=== PATIENT | male | born 1990 | race Caucasian/White ===

== ENCOUNTER 2021-07-20 10:30 | Emergency (ER) | payer SELFPAY ==
[2021-07-20] MEDS ORDERED: BUPIVACAINE 0.5% PF 10 ML VIAL ONE (10:53)
--- NOTE | 2021-07-20 11:11 | EDPHYS ---
Physician Documentation [facility] Name: Job Campbell Jr Age: 30 yrs Sex: Male : 1990 Arrival Date: 07/20/2021 Time: 10:32 Bed 12 Private MD: ED Physician Edmund Benavides HPI: 07/20 10:54 This 30 yrs old Male presents to ER via Ambulatory with complaints of Infected Finger. jr8 10:54 The patient or guardian reports pain, swelling, tenderness. The complaints affect the jr8 cuticle left middle finger. Onset: The symptoms/episode began/occurred gradually. Modifying factors: The symptoms are alleviated by nothing, the symptoms are aggravated by movement. Associated signs and symptoms: The patient has no apparent associated signs or symptoms. Severity of symptoms: At their worst the symptoms were moderate, in the emergency department the symptoms are unchanged. The patient has not experienced similar symptoms in the past. The patient has not recently seen a physician. Stated that he hit his finger with drill bit the other day at work. Now with exudate, swelling, and erythema to left middle finger medial cuticle . Historical: - Allergies: 10:38 No Known Allergies; iw - Home Meds: 10:38 None [Active]; iw - PMHx: 10:38 None; iw - PSHx: 10:38 None; iw - Immunization history:: Last tetanus immunization: unknown. - Social history:: Smoking status: . ROS: 10:54 Eyes: Negative for injury, pain, redness, and discharge, ENT: Negative for injury, jr8 pain, and discharge, Neck: Negative for injury, pain, and swelling, Cardiovascular: Negative for chest pain, palpitations, and edema, Respiratory: Negative for shortness of breath, cough, wheezing, and pleuritic chest pain, Abdomen/GI: Negative for abdominal pain, nausea, vomiting, diarrhea, and constipation, Back: Negative for injury and pain, Skin: Negative for injury, rash, and discoloration, Neuro: Negative for headache, weakness, numbness, tingling, and seizure. 10:54 MS/extremity: Positive for erythema, pain, swelling, tenderness, of the left middle fingernail. Exam: 10:54 Constitutional: This is a well developed, well nourished patient who is awake, alert, jr8 and in no acute distress. Cardiovascular: Regular rate and rhythm with a normal S1 and S2. No gallops, murmurs, or rubs. Normal PMI, no JVD. No pulse deficits. Respiratory: Lungs have equal breath sounds bilaterally, clear to auscultation and percussion. No rales, rhonchi or wheezes noted. No increased work of breathing, no retractions or nasal flaring. Skin: Warm, dry with normal turgor. Normal color with no rashes, no lesions Neuro: Awake and alert, GCS 15, oriented to person, place, time, and situation. Motor strength 5/5 in all extremities. Sensory grossly intact. 10:54 Musculoskeletal/extremity: Extremities: grossly normal except: noted in the left middle fingernail: Patient has mild erythema to lateral cuticle with exudate noted. Swelling and tenderness present. Local to cuticle region. Remainder of finger and hand unremarkable , ROM: intact in all extremities, Circulation is intact in all extremities. Sensation intact. Vital Signs: 10:37 BP 135 / 98; Pulse 82; Resp 16; Temp 98.6; Pulse Ox 100% on R/A; iw Procedures: 10:54 I \T\ D: Incision and drainage was performed for an abscess of the left middle finger jr8 Prepped with Betadine, Incised with scissors under cuticle . Drained small amount purulent fluid. bloody fluid. the patient tolerated the procedure well. Nerve block: (digital) of dorsal aspect of proximal phalanx of left middle finger Medication: Marcaine 0.5%, Amount: 4 mls were injected, Effect: the patient has resolution of the pain, Set up for procedure. Performed by Carlos KELLER Patient tolerated well. MDM: 10:44 Patient medically screened. jr8 11:09 Data reviewed: vital signs, nurses notes, and as a result, I will discharge patient. jr8 Data interpreted: Pulse oximetry: on room air is 100 %. Interpretation: normal. Counseling: I had a detailed discussion with the patient and/or guardian regarding: the historical points, exam findings, and any diagnostic results supporting the discharge/admit diagnosis, the need for outpatient follow up, a family practitioner, to return to the emergency department if symptoms worsen or persist or if there are any questions or concerns that arise at home. 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 Exp: iw 05/11/2023. Lot #: [id number]. } Route: IM; Site: left deltoid; 11:20 Follow up: Response: No adverse reaction iw Disposition Summary: 07/20/21 11:10 Discharge Ordered [facility] Problem: new jr8 Symptoms: have improved jr8 Condition: Stable jr8 Diagnosis - Paronychia jr8 Followup: jr8 - With: Private Physician - When: 5 - 6 days - Reason: Recheck today's complaints, Re-evaluation by your physician Discharge Instructions: - Discharge Summary Sheet jr8 - Paronychia jr8 Forms: - Medication Reconciliation Form jr8 - Thank You Letter jr8 - Antibiotic Education jr8 - Prescription Opioid Use jr8 Prescriptions: - Cephalexin 500 mg Oral Capsule - take 1 capsule by ORAL route every 8 hours for 7 days; 21 capsule; Refills: 0, jr8 Product Selection Permitted - Tylenol-Codeine #3 300 mg-30 mg Oral - take 2 tablet by ORAL route every 8 hours As needed; 12 tablet; Refills: 0, jr8 Product Selection Permitted Signatures: Dayami Tellez RN RN Ximena Thornton RN RN Carlos Ocampo PA PA jr8
--- NOTE | 2021-07-20 11:11 | ER ---
Nurse's Notes [facility] Name: Job Campbell Jr Age: 30 yrs Sex: Male : 1990 Arrival Date: 07/20/2021 Time: 10:32 Bed 12 Private MD: Diagnosis: Paronychia Presentation: 07/20 10:37 Chief complaint: Patient states: left middle finger has had infection X 3 weeks after iw drilling into it with a drill bit. Coronavirus screen: At this time, the client does not indicate any symptoms associated with coronavirus-19. Ebola Screen: Patient negative for fever greater than or equal to 101.5 degrees Fahrenheit, and additional compatible Ebola Virus Disease symptoms Patient denies exposure to infectious person. Patient denies travel to an Ebola-affected area in the 21 days before illness onset. No symptoms or risks identified at this time. Initial Sepsis Screen: Does the patient meet any 2 criteria? No. Patient's initial sepsis screen is negative. Does the patient have a suspected source of infection? No. Patient's initial sepsis screen is negative. Risk Assessment: Do you want to hurt yourself or someone else? Patient reports no desire to harm self or others. Onset of symptoms was June 30, 2021. 10:37 Method Of Arrival: Ambulatory iw 10:37 Acuity: SUSANNA 4 iw Historical: - Allergies: 10:38 No Known Allergies; iw - Home Meds: 10:38 None [Active]; iw - PMHx: 10:38 None; iw - PSHx: 10:38 None; iw - Immunization history:: Last tetanus immunization: unknown. - Social history:: Smoking status: . Screenin:40 Abuse screen: Denies threats or abuse. Denies injuries from another. Nutritional iw screening: No deficits noted. Tuberculosis screening: No symptoms or risk factors identified. Fall Risk None identified. Assessment: 10:39 General: Appears in no apparent distress. Behavior is calm, cooperative. Pain: iw Complains of pain in dorsal aspect of distal phalanx of left middle finger and palmar aspect of distal phalanx of left middle finger. Neuro: Level of Consciousness is awake, alert, obeys commands, Oriented to person, place, time, situation, Moves all extremities. Respiratory: Respiratory effort is even, unlabored, Respiratory pattern is regular. Derm: Abscess located on palmar aspect of distal phalanx of left middle finger and left middle fingernail. 11:20 Reassessment: Patient appears in no apparent distress at this time. Patient is alert, ss oriented x 3, equal unlabored respirations, skin warm/dry/pink. Vital Signs: 10:37 BP 135 / 98; Pulse 82; Resp 16; Temp 98.6; Pulse Ox 100% on R/A; iw ED Course: 10:32 Patient arrived in ED. mr 10:38 Triage completed. iw 10:39 Arm band placed on. iw 10:44 Carlos Ocampo PA is PHCP. jr8 10:44 Edmund Benavides MD is Attending Physician. jr8 10:47 Dayami Tellez, RN is Primary Nurse. iw 11:16 Assist provider with I \T\ D: of an abscess on left middle finger. Patient did not have iw IV access during this emergency room visit. 11:20 Patient has correct armband on for positive identification. 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 Exp: iw 05/11/2023. Lot #: [id number]. } Route: IM; Site: left deltoid; 11:20 Follow up: Response: No adverse reaction iw Medication: 11:18 Vaccine Information Statement (VIS) provided today. Questions and/or concerns iw addressed. VIS edition date: July 20, 2021. Outcome: 11:10 Discharge ordered by . jr8 11:20 Discharged to home ambulatory. ss 11:20 Condition: good 11:20 Discharge instructions given to patient, family, Instructed on discharge instructions, follow up and referral plans. medication usage, Demonstrated understanding of instructions, follow-up care, medications, Prescriptions given X 2. 11:21 Patient left the ED. ss Signatures: Louise Peter Dayami Tellez, VEDA MCCOLLUM Ximena Thornton RN RN Carlos Ocampo PA PA jr8
[2021-07-20] MEDS ORDERED: TETANUS & DIPHTHERIA TOX,ADULT 0.5 ML VIAL ONE (11:17)
[2021-07-20 11:30] VITALS: BP 135/98; TEMP 98.6; O2SAT 100
== END 2021-07-20 11:21 | disposition home or self-care (01) ==
LOC: ER 10:30
PROC: 0H9QXZZ Drainage of Finger Nail, External Approach (ICD-10-PCS; principal; 2021-07-20)
DX: L03.012 Cellulitis of left finger (principal)
CPT/HCPCS: 64450; 90471; 90714; 99283

== ENCOUNTER 2021-09-07 07:56 | Emergency (ER) | payer SELFPAY ==
--- NOTE | 2021-09-07 08:14 | EDPHYS ---
Physician Documentation [facility] Name: Job Campbell Jr Age: 30 yrs Sex: Male : 1990 Arrival Date: 09/07/2021 Time: 07:58 Bed 14 Private MD: Clint Nolan ED Physician Lokesh Levine HPI: 09/07 08:16 This 30 yrs old Male presents to ER via Ambulatory with complaints of Burn left foot. pm1 08:16 The patient presents with a burn as a result of Welding spark, at work, is located on pm1 the dorsum of left foot. Onset: The symptoms/episode began/occurred 3 day(s) ago. Burn type and severity: 2nd degree:. Associated signs and symptoms: none. The patient has experienced a previous episode, many years ago, To right foot from welding spark also. The patient has not recently seen a physician. 30-year-old male presents to the ER with complaints of left foot injury, second-degree burn approximately size of a nickel. 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 Patient concerned about infection and is looking for antibiotics and pain medication. Patient took tramadol from a friend of his mother last night and reported some relief. Tetanus up-to-date received it this year. Historical: - Allergies: 08:00 No Known Allergies; vg1 - Home Meds: 08:00 None [Active]; vg1 - PMHx: 08:00 None; vg1 - PSHx: 08:00 None; vg1 - Immunization history:: Client reports having NOT received the Covid vaccine. - Social history:: Smoking status: Patient reports the use of cigarette tobacco products, denies chronic smoking, but will smoke occasionally, Reported history of juuling and/or vaping. ROS: 08:16 Constitutional: Negative for fever, chills, and weight loss, Cardiovascular: Negative pm1 for chest pain, palpitations, and edema, Respiratory: Negative for shortness of breath, cough, wheezing, and pleuritic chest pain. 08:16 MS/extremity: Positive for pain, of the dorsum of left foot, Negative for decreased range of motion, deformity. 08:16 Skin: Positive for burn, of the dorsum of left foot. 08:16 All other systems are negative. Exam: 08:16 Constitutional: This is a well developed, well nourished patient who is awake, alert, pm1 and in no acute distress. Head/Face: Normocephalic, atraumatic. 08:16 Cardiovascular: Exam negative for acute changes, Rate: Rhythm: regular, Pulses: no pulse deficits are appreciated. 08:16 Respiratory: Exam negative for acute changes, respiratory distress, shortness of breath. 08:16 Skin: Appearance: normal except for affected area, injury, burn(s), 2nd degree burn injury covers approximately 0.1% of the total body surface area, and is located on the dorsum of left foot. 08:16 Neuro: Exam negative for acute changes, Orientation: is normal, Mentation: is normal, Motor: moves all fours. Vital Signs: 08:00 BP 123 / 82; Pulse 90; Resp 16; Temp 98.2(TE); Pulse Ox 100% on R/A; Weight 65.77 kg; vg1 Height 5 ft. 11 in. (180.34 cm); Pain 7/10; 08:00 Body Mass Index 20.22 (65.77 kg, 180.34 cm) vg1 MDM: 08:02 Patient medically screened. pm1 08:12 ED course: Patient tetanus is up to date. Reports received it 2 months ago . pm1 08:29 Data reviewed: vital signs. Data interpreted: Pulse oximetry: on room air is 100 %. pm1 Interpretation: normal. Counseling: I had a detailed discussion with the patient and/or guardian regarding: the historical points, exam findings, and any diagnostic results supporting the discharge/admit diagnosis, the need for outpatient follow up, to return to the emergency department if symptoms worsen or persist or if there are any questions or concerns that arise at home. 08:29 Differential diagnosis: 2nd degree morrow, cellulitis, abscess. pm1 07 08:12 Order name: Wound dressing; Complete Time: 08:55 pm1 Administered Medications: 08:29 Drug: HYDROcodone-acetaminophen 5 mg-325 mg 1 tabs Route: PO; vg1 08:55 Follow up: Response: Adverse reaction, Physician notified 1 Disposition: 13:56 Co-signature as Attending Physician, Lokesh Levine MD. rn Disposition Summary: 09/07/21 08:14 Discharge Ordered Location: Home pm1 Problem: new pm1 Symptoms: have improved pm1 Condition: Stable pm1 Diagnosis - Burn of second degree of left foot pm1 Followup: pm1 - With: Private Physician - When: As needed - Reason: Worsening of condition Followup: pm1 - With: Clint Nolan MD - When: 2 - 3 days - Reason: Recheck today's complaints, Continuance of care, Re-evaluation by your physician Discharge Instructions: - Discharge Summary Sheet pm1 - Burn Care, Adult pm1 Forms: - Medication Reconciliation Form pm1 - Thank You Letter pm1 - Antibiotic Education pm1 - Prescription Opioid Use pm1 Prescriptions: - Cephalexin 500 mg Oral Capsule - take 1 capsule by ORAL route every 6 hours for 10 days; 40 capsule; Refills: 0, pm1 Product Selection Permitted - Bactrim DS 800-160 mg Oral Tablet - take 1 tablet by ORAL route every 12 hours for 10 days; 20 tablet; Refills: 0, pm1 Product Selection Permitted - Tramadol 50 mg Oral Tablet - take 1 tablet by ORAL route every 8 hours as needed; 12 tablet; Refills: 0, pm1 Product Selection Permitted - bacitracin - apply 1 application by TOPICAL route every 8 hours; 1 tube; Refills: 0, Product pm1 Selection Permitted Signatures: Lokesh Levine MD MD rn Marinas, Patrick, NP DIETETICS DIRECTOR pm1 Radha Benites RN RN vg1
[2021-09-07] MEDS ORDERED: HYDROCODONE/APAP 5/325 MG TAB ONE (08:33)
--- NOTE | 2021-09-07 08:57 | ER ---
Nurse's Notes 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 Pt states left foot has swelling. stated took Tramadol yesterday around 1830. 08:00 Coronavirus screen: Vaccine status: Patient reports being unvaccinated. Client denies vg1 travel out of the [place] in the last 14 days. Ebola Screen: Patient denies exposure to infectious person. Patient denies travel to an Ebola-affected area in the 21 days before illness onset. Initial Sepsis Screen: Does the patient meet any 2 criteria? No. Patient's initial sepsis screen is negative. Does the patient have a suspected source of infection? No. Patient's initial sepsis screen is negative. Risk Assessment: Do you want to hurt yourself or someone else? Patient reports no desire to harm self or others. Onset of symptoms was August 06, 2021. 08:00 Method Of Arrival: Ambulatory vg1 08:00 Acuity: SUSANNA 4 vg1 Triage Assessment: 08:00 General: Appears uncomfortable, Behavior is calm, cooperative. Pain: Complains of pain vg1 in dorsum of left foot Pain currently is 7 out of 10 on a pain scale. Pain began 2-3 days ago. EENT: No signs and/or symptoms were reported regarding the EENT system. Neuro: Level of Consciousness is awake, alert, obeys commands, Oriented to person, place, time, situation. Cardiovascular: Patient's skin is warm and dry. Respiratory: Airway is patent Respiratory effort is even, unlabored. GI: No signs and/or symptoms were reported involving the gastrointestinal system. : No signs and/or symptoms were reported regarding the genitourinary system. Derm: Skin has blisters on on top of left foot Skin is red. Musculoskeletal: Circulation, motion, and sensation intact. Injury Description: Burn was sustained 2 days ago. Historical: - Allergies: 08:00 No Known Allergies; vg1 - Home Meds: 08:00 None [Active]; vg1 - PMHx: 08:00 None; vg1 - PSHx: 08:00 None; vg1 - Immunization history:: Client reports having NOT received the Covid vaccine. - Social history:: Smoking status: Patient reports the use of cigarette tobacco products, denies chronic smoking, but will smoke occasionally, Reported history of juuling and/or vaping. Screenin:20 Abuse screen: Denies threats or abuse. Nutritional screening: No deficits noted. vg1 Tuberculosis screening: No symptoms or risk factors identified. Fall Risk None identified. Assessment: 08:00 Reassessment: SEE TRIAGE. vg1 08:56 Reassessment: Patient appears in no apparent distress at this time. No changes from vg1 previously documented assessment. Patient and/or family updated on plan of care and expected duration. Pain level reassessed. Patient is alert, oriented x 3, equal unlabored respirations, skin warm/dry/pink. Vital Signs: 08:00 BP 123 / 82; Pulse 90; Resp 16; Temp 98.2(TE); Pulse Ox 100% on R/A; Weight 65.77 kg; vg1 Height 5 ft. 11 in. (180.34 cm); Pain 7/10; 08:00 Body Mass Index 20.22 (65.77 kg, 180.34 cm) vg1 ED Course: 07:58 Patient arrived in ED. as 07:58 Clint Nolan MD is Private Physician. as 08:00 Arm band placed on. vg1 08:01 Telly Leigh [facility]. pm1 08:01 Lokesh Levine MD is Attending Physician. pm1 08:14 Clint Nolan MD is Referral Physician. pm1 08:16 Radha Benites, VEDA is Primary Nurse. vg1 08:18 Triage completed. vg1 08:20 Patient has correct armband on for positive identification. Placed in gown. Call light vg1 in reach. Side rails up X 1. 08:20 No provider procedures requiring assistance completed. Patient did not have IV access vg1 during this emergency room visit. Administered Medications: 08:29 Drug: HYDROcodone-acetaminophen 5 mg-325 mg 1 tabs Route: PO; vg1 08:55 Follow up: Response: Adverse reaction, Physician notified vg1 Medication: 08:57 VIS not applicable for this client. vg1 Outcome: 08:14 Discharge ordered by . pm1 08:57 Discharged to home ambulatory. vg1 08:57 Condition: good 08:57 Discharge instructions given to patient, Instructed on discharge instructions, follow up and referral plans. medication usage, wound care, Demonstrated understanding of instructions, follow-up care, medications, wound care, Prescriptions given X 4. 08:57 Patient left the ED. vg1 Signatures: Katia Clark Patrick, NP MILLED RUBBER TENDER pm1 Radha Benites, RN RN vg1 Corrections: (The following items were deleted from the chart) 08:19 08:00 Chief complaint: Patient states: was welding on and stated a spark was vg1 caught in between shoe and sock. Pt states left foot has swelling vg1
[2021-09-07 09:05] VITALS: BP 123/82; TEMP 98.2; O2SAT 100
== END 2021-09-07 08:57 | disposition home or self-care (01) ==
LOC: ER 07:56
DX: T25.222A Burn of second degree of left foot, initial encounter (principal); T31.0 Burns involving less than 10% of body surface; F17.210 Nicotine dependence, cigarettes, uncomplicated
CPT/HCPCS: 99283

== ENCOUNTER 2022-05-18 11:39 | Emergency (ER) | payer SELFPAY ==
--- OUTSIDE RECORDS SUMMARY | 2022-05-18 11:42 | XMS REPORT | Continuity of Care Document ---
:1990 Author Organization [facility] t Address [address] [place] [address] Care Team Providers Name Role Phone DADA LISSETTE Primary Care Physician Unavailable [facility] Attending Clinician Unavailable Unknown, Attending Attending Clinician Unavailable Rae Crystal MD Attending Clinician PALOMO WOODY Attending Clinician Unavailable Doctor Unassigned, [place] Attending Clinician Unavailable Lab, Adc Fam Pob I Attending Clinician Unavailable Margaret Reyes Attending Clinician MARGARET UMANZOR Attending Clinician Unavailable Problems This patient has no known problems. Allergies, Adverse Reactions, Alerts Allergy Allergy Status Severity Reaction(s) Onset Inactive Treating Comm ents Source Name Type Date Date Clinician NO KNOWN Drug Active Univers ALLERGIE Class ity of S [facility] Social History Social Habit Start Date Stop Date Quantity Comments Source Exposure to 2022-05-08 2022-05-18 Not sure [facility] SARS-CoV-2 00:00:00 10:21:00 [facility] (event) Branch Tobacco use and 2022-05-18 2022-05-18 Smokeless tobacco Un iversity of exposure 00:00:00 00:00:00 non-user [facility] Sex Assigned At [birth year] Universit y of 00:00:00 00:00:00 [facility] Smoking Status Start Date Stop Date Source Tobacco [facility] tobacco [facility] Medications This patient has no known medications. Vital Signs Vital Name Observation Time Observation Value Comments Source Systolic blood 2022-05-18 15:46:00 118 mm[Hg] Univer sity of pressure [facility] Diastolic blood 2022-05-18 15:46:00 73 mm[Hg] Unive rsity of pressure [facility] Heart rate 2022-05-18 15:46:00 93 /min [facility] acute hospital Body temperature 2022-05-18 15:46:00 36.89 [place] [facility] Res[facility] rate 2022-05-18 15:46:00 16 /min [facility] Body weight 2022-05-18 15:46:00 59.421 kg General acute hospital BMI 2022-05-18 15:46:00 18.27 kg/m2 General acute hospital Oxygen saturation in 2022-05-18 15:46:00 99 /min [facility] Arterial blood by [facility] Pulse oximetry [place] Procedures Procedure Date / Time Performed Performing Clinician Sour e ASSIGNMENT OF BENEFITS 2022-05-18 15:24:23 Doctor Unassigned, No [facility] Encounters Start End Encounter Admission Attending Care Care Encounter Source Date/Time Date/Time Type Type Clinicians Facility Department ID 2022-05-18 2022-05-18 Nurse Nurse, [facility] [id number] [facility] 10:40:00 11:00:00 Visit Unknown, Attending HEALTH [id number] ity of Rae Crystal [id number] [facility]?BLEA [phone] Ga rommel [address] MEDICAL OFFICE BUILDING 2022-05-18 2022-05-18 Outpatient R BONG, [facility] [id number] Univers 10:40:00 10:40:00 PALOMO ity o f [facility] 2022-05-18 2022-05-18 Orders Doctor BUTLER [id number] Univers 00:00:00 00:00:00 Only Unassigned, ARNIE [id number] [facility] [id number] Lucio as [phone] [place] [address] Branch 2020-01-28 2020-01-28 Laboratory Lab, Adc Fam Pob I [facility] [id number] Univers 15:45:02 16:05:02 [id number] [id number] Lucio as Profkailyn [phone] Ga rommel [address] Office Building One 2020-01-28 2020-01-28 Outpatient R NOÉ [facility] [id number] Univers 15:40:00 15:40:00 [facility] Results This patient has no known results.
[2022-05-18] MEDS ORDERED: LIDOCAINE 1% MPF 5 ML VIAL ONE (11:55)
--- NOTE | 2022-05-18 12:34 | EDPHYS ---
Physician Documentation [facility] Name: Job Campbell Jr Age: 31 yrs Sex: Male : 1990 Arrival Date: 05/18/2022 Time: 11:40 Bed 15 Private MD: Clint Nolan ED Physician Benito Zimmer Historical: - Allergies: 05/18 11:47 No Known Allergies; ll1 - PMHx: 11:47 None; ll1 - PSHx: 11:47 None; ll1 - Immunization history:: Adult Immunizations up to date, Client reports receiving the 2nd dose of the Covid vaccine, Last tetanus immunization: up to date. - Social history:: Smoking status: Patient reports the use of cigarette tobacco products, denies chronic smoking, but will smoke occasionally, smokes one-half pack cigarettes per day. Vital Signs: 11:47 BP 128 / 94; Pulse 88; Resp 16; Temp 99; Pulse Ox 97% on R/A; Weight 61.23 kg; Height 6 ll1 ft. 1 in. ; Pain 6/10; 11:47 Body Mass Index 17.81 (61.23 kg, 185.42 cm) ll1 11:47 Pain Scale: Adult ll1 Laceration: 12:32 Wound Repair of 3cm ( 1.2in ) subcutaneous laceration to palmar aspect of middle kb phalanx of left middle finger. Irregularly shaped.. Skin/tissue flap noted.. Distal neuro/vascular/tendon intact. Anesthesia: Wound infiltrated with 2 mls of 1% lidocaine. Wound prep: Extensive cleansing with hibiclenz by ct, Wound irrigation with saline by ct. Skin closed with 9 5-0 Prolene using simple sutures and sterile technique. Patient tolerated well. MDM: 11:42 Patient medically screened. kb 05/18 12:04 Order name: Setup Suture Tray; Complete Time: 12:04 kc6 05/18 12:04 Order name: Dressing - Wound; Complete Time: 12:07 kb 05/18 12:04 Order name: Gloves, Sterile; Complete Time: 12:07 kb 05/18 12:04 Order name: Prolene, Sutures; Complete Time: 12:07 kb Administered Medications: 12:11 Drug: Lidocaine Infiltration (1 %) 1 vials Volume: 5 ml; Route: Infiltration; kc6 Disposition Summary: 05/18/22 12:33 Discharge Ordered Location: Home kb Condition: Stable kb Diagnosis - Laceration without foreign body of left middle finger without damage to nail kb Followup: kb - With: Emergency Department - When: As needed - Reason: Worsening of condition Followup: kb - With: Clint Nloan MD - When: 7 - 10 days - Reason: Recheck today's complaints Discharge Instructions: - Discharge Summary Sheet kb - Laceration Care, Adult, [id number] kb Forms: - Medication Reconciliation Form kb - Thank You Letter kb - Antibiotic Education kb - Prescription Opioid Use kb - Work release form kb Signatures: Lexus Jeter, SHELL WORKER-C SHELL WORKER-Richard Arreguin, RN RN ll1 Gloria Lara RN RN kc6
--- NOTE | 2022-05-18 12:34 | ER ---
Nurse's Notes [facility] Name: Job Campbell Jr Age: 31 yrs Sex: Male : 1990 Arrival Date: 05/18/2022 Time: 11:40 Bed 15 Private MD: Clint Nolan Diagnosis: Laceration without foreign body of left middle finger without damage to nail Presentation: 05/18 11:47 Chief complaint: Patient states: Fell off a ladder this morning. R hand 3rd digit ll1 laceration, bleeding controlled. Denies any other injuries. Coronavirus screen: Vaccine status: Patient reports receiving the 2nd dose of the covid vaccine. Client denies travel out of the [place] in the last 14 days. At this time, the client does not indicate any symptoms associated with coronavirus-19. Ebola Screen: Patient denies travel to an Ebola-affected area in the 21 days before illness onset. Initial Sepsis Screen: Does the patient meet any 2 criteria? No. Patient's initial sepsis screen is negative. Does the patient have a suspected source of infection? Yes: Skin breakdown/wound. Risk Assessment: Do you want to hurt yourself or someone else? Patient reports no desire to harm self or others. Onset of symptoms was May 18, 2022. 11:47 Method Of Arrival: Ambulatory ll1 11:47 Acuity: SUSANNA 4 ll1 Triage Assessment: 11:48 General: Appears in no apparent distress. Behavior is calm, cooperative, appropriate ll1 for age. Pain: Complains of pain in right hand Pain currently is 6 out of 10 on a pain scale. Quality of pain is described as aching. Derm: Reports laceration R hand 3rd digit. Musculoskeletal: Circulation, motion, and sensation intact. Capillary refill < 3 seconds. Injury Description: Laceration. Historical: - Allergies: 11:47 No Known Allergies; ll1 - PMHx: 11:47 None; ll1 - PSHx: 11:47 None; ll1 - Immunization history:: Adult Immunizations up to date, Client reports receiving the 2nd dose of the Covid vaccine, Last tetanus immunization: up to date. - Social history:: Smoking status: Patient reports the use of cigarette tobacco products, denies chronic smoking, but will smoke occasionally, smokes one-half pack cigarettes per day. Screenin:49 [facility] ED Fall Risk Assessment (Adult) History of falling in the last 3 months, kc6 including since admission Yes- single mechanical fall (1 pt) Confusion or Disorientation No (0 pts) Intoxicated or Sedated No (0 pts) Impaired Gait No (0 pts) Mobility Assist Device Used No (0 pt) Altered Elimination No (0 pt) Score/Fall Risk Level 0 - 2 = Low Risk Oriented to surroundings, Maintained a safe environment, Educated pt \T\ family on fall prevention, incl call for assistance when getting out of bed, Assessed \T\ reinforced patient's understanding of fall precautions, Hourly rounding (assess needs \T\ fall precautionary measures) done. Abuse screen: Denies threats or abuse. Denies injuries from another. Nutritional screening: No deficits noted. Tuberculosis screening: No symptoms or risk factors identified. Assessment: 11:47 General: Appears in no apparent distress. comfortable, Behavior is calm, cooperative, kc6 appropriate for age. Pain: Complains of pain in palmar aspect of middle phalanx of left middle finger Pain does not radiate. Pain currently is 6 out of 10 on a pain scale. Pain began 1 hour ago. Is continuous, Alleviated by nothing. Aggravated by increased activity, Noted to be resistant to movement, Also complains of no other associated symptoms. Neuro: Level of Consciousness is awake, alert, obeys commands, Oriented to person, place, time, situation, Appropriate for age. Cardiovascular: Capillary refill < 3 seconds. Respiratory: Airway is patent Trachea midline Respiratory effort is even, unlabored, Respiratory pattern is regular, symmetrical. GI: No signs and/or symptoms were reported involving the gastrointestinal system. : No signs and/or symptoms were reported regarding the genitourinary system. EENT: No signs and/or symptoms were reported regarding the EENT system. Derm: No signs and/or symptoms reported regarding the dermatologic system. Skin is intact, Skin is pink, warm \T\ dry. Musculoskeletal: No signs and/or symptoms reported regarding the musculoskeletal system. Circulation, motion, and sensation intact. Capillary refill < 3 seconds, Range of motion: intact in all extremities. Vital Signs: 11:47 BP 128 / 94; Pulse 88; Resp 16; Temp 99; Pulse Ox 97% on R/A; Weight 61.23 kg; Height 6 ll1 ft. 1 in. ; Pain 6/10; 11:47 Body Mass Index 17.81 (61.23 kg, 185.42 cm) ll1 11:47 Pain Scale: Adult ll1 ED Course: 11:40 Patient arrived in ED. am2 11:40 Clint Nolan MD is Private Physician. am2 11:42 Lexus Jeter FNP-C [facility] kb 11:42 Benito Zimmer MD is Attending Physician. kb 11:44 Gloria Lara, RN is Primary Nurse. kc6 11:46 Arm band placed on Patient placed in an exam room, on a stretcher. ll1 11:48 Triage completed. ll1 11:49 Patient has correct armband on for positive identification. Bed in low position. Call kc6 light in reach. Side rails up X 1. 12:33 Clint Nolan MD is Referral Physician. kb Administered Medications: 12:11 Drug: Lidocaine Infiltration (1 %) 1 vials Volume: 5 ml; Route: Infiltration; kc6 Outcome: 12:33 Discharge ordered by MD. kb Signatures: Lexus Jeter FNP-C FNP-Rae Varghese am2 Richard Urban, RN RN ll1 Gloria Lara, RN RN kc6
== END 2022-05-18 12:45 | disposition home or self-care (01) ==
LOC: ER 11:39
PROC: 0HQGXZZ Repair Left Hand Skin, External Approach (ICD-10-PCS; principal; 2022-05-18)
DX: S61.213A Laceration without foreign body of left middle finger without damage to nail, initial encounter (principal)
CPT/HCPCS: 99283; J2001

== ENCOUNTER 2023-10-03 22:33 | Emergency (ER) | payer OTHER ==
--- OUTSIDE RECORDS SUMMARY | 2023-10-03 22:35 | XMS REPORT | Continuity of Care Document ---
Author Name Unknown Address [address] [place] [address] [facility] thconnect Address 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 Name Role Phone Clint Nolan Primary Care Physician [phone] [facility] Attending Clinician Un available Unknown, Attending Attending Clinician UnavailRae Sherman MD Attending Clinician [phone] PALOMO WOODY Attending Clinician Vi franklin Doctor Unassigned, [place] Attending Clinician U navailable Lab, Adc Fam Pob I Attending Clinician Wang Calhoun Attending Clinician [phone] WANG UMANZOR Attending Clinician Unavailable Allergies, Adverse Reactions, Alerts Allergy Name Allergy Type Status Severity Reaction(s) Onset Date Inactive Date Treating Clinician Comments Source NO KNOWN ALLERGIE S Drug Class Active [facility] Social History Social Habit Start Date Stop Date Quantity Comments Source Exposure to SARS-CoV-2 (event) 2022-05-08 00:00:00 2022-05-18 10:21:00 Not sure [facility] Tobacco use and exposure 2022-05-18 00:00:00 2022-05-18 00:00:00 Smokeless tobacco non-user [facility] Sex Ass[birth year] At 1990 00:00:00 1990 00:00:00 [facility] Smoking Status Start Date Stop Date Source Tobacco smoking consumption unknown [facility] Never smoked tobacco [facility] Vital Signs Vital Name Observation Time Observation Value Comments Jorge waters Systolic blood pressure 2022-05-18 15:46:00 118 mm[Hg] [facility] Diastolic blood pressure 2022-05-18 15:46:00 73 mm[Hg] [facility] Heart rate 2022-05-18 15:46:00 93 /min [facility] acute hospital Body temperature 2022-05-18 15:46:00 36.89 Lucero [facility] Respiratory rate 2022-05-18 15:46:00 16 /min [facility] Body weight 2022-05-18 15:46:00 59.421 kg [facility] BMI 2022-05-18 15:46:00 18.27 kg/m2 [facility] Oxygen saturation in Arterial blood by Pulse oximetry 2022-05-18 15:46:00 99 /min [facility] Procedures Procedure Date / Time Performed Performing Clinician Source ASSIGNMENT OF BENEFITS 2022-05-18 15:24:23 Docto r Unassigned, [place] [facility] PATIENT FINANCIAL RESPONSIBILITY - ALL FORMS Doctor Unassigned, [place] [facility] Encounters Start Date/Time End Date/Time Encounter Type Admission Type Attending Clinicians Care Facility Care Department Encounter ID Source 2022-05-18 10:40:00 2022-05-18 11:00:00 Nurse [facility] Unknown, Attending [facility] [id number] [facility] 2022-05-18 10:40:00 2022-05-18 10:40:00 Outpatient R PALOMO WOODY [facility] [id number] [facility] 2022-05-18 00:00:00 2022-05-18 00:00:00 Orders Only Doctor Unassigned, [place] [address][id number] [facility] 2020-01-28 15:45:02 2020-01-28 16:05:02 Laboratory Only Lab, Adc Fam Pob I Simone Wang [facility] [id number] [facility] 2020-01-28 15:40:00 2020-01-28 15:40:00 Outpatient Cata UMANZOR WANG [facility] [id number] [facility] Orders Only Doctor Unassigned, [place] [facility] ..[id number] [facility]
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
[2023-10-03] MEDS ORDERED: KETOROLAC 30 MG/ML INJ ONE (23:54)
[2023-10-03] MEDS ORDERED: HYDROCODONE/APAP 5/325 MG TAB ONE (23:54)
[2023-10-04 05:01] VITALS: BP 115/69; TEMP 98.6; O2SAT 99
== END 2023-10-04 00:22 | disposition home or self-care (01) ==
LOC: ER 22:33
DX: M54.2 Cervicalgia (principal); V49.40XA Driver injured in collision with unspecified motor vehicles in traffic accident, initial encounter
CPT/HCPCS: 96372; 99284

== ENCOUNTER 2024-05-26 22:43 | Emergency (ER) | payer OTHER, SELFPAY ==
--- OUTSIDE RECORDS SUMMARY | 2024-05-26 22:47 | XMS REPORT | Continuity of Care Document ---
Author Name Unknown Address [address] [facility] [address] [place] [address] [facility] Address [address] [facility] [address] [place] [address] Care Team Providers Care Architecture Consultant Name Role Phone Clint Nolan Primary Care Physician [phone] VICKEY CHAIDEZ Attending Clinician Unavailable MD DENAE Attending Clinician Unavailab CECILIA Fiore Attending Clinician Unavaila ble [id number] Attending Clinician Unavailable ANTHONY JUNG Attending Clinician Unavailable BALDOMERO OLSON Attending Clinician Unavailable [id number] Attending Clinician Unavailable BRAYDEN HUERTA Attending Clinician Unavailable DALLAS MCKEE Attending Clinician Unavailable Nurse, [facility] Attending Clinician Un available Unknown, Attending Attending Clinician UnavailRae Sherman MD Attending Clinician [phone] PALOMO WOODY Attending Clinician Unavailab rigoberto Doctor Unassigned, Pass Christian Attending Clinician U navailable Lab, Adc Fam Pob I Attending Clinician Unavailab Margaret Morales Attending Clinician [phone] MARGARET UMANZOR Attending Clinician Unavailable Payers Payer Name Policy Type Policy Number Effective Date Expirati on Date Source [employer] 94 9 [id number] 2024 00:00:00 Problems Condition Name Condition Details Condition Category Status Onset Date Resolution Date Last Treatment Date Treating Clinician Comments Source BMI less than 19,adult BMI less than 19,adult Disease Active 04-26 00:00: 00 Odessa Hawkins Externa l Allergies, Adverse Reactions, Alerts Allergy Name Allergy Type Status Severity Reaction(s) Onset Date Inactive Date Treating Clinician Comments Source NO KNOWN ALLERGIE S Drug Class Active [facility] Social History Social Habit Start Date Stop Date Quantity Comments Source Sexual orientation Eusebio hamilton Sepedro - External History of Occupation Odessa Larsen - External History of tobacco use Cigarette Smoker Odessa barrientos - External Alcoholic beverage intake 2024-05-16 00:00:00 2024-05-16 00:00:00 Lifetime non-drinker (finding) Odessa Larsen - External Education 2023-10-27 00:00:00 2023-10-27 00:00:00 17 Odessa Chava - External Cigarettes smoked current (pack per day) - Reported 2023-10-27 00:00:00 2023-10-27 00:00:00 Odessa Larsen - External Cigarette pack-years 2023-10-27 00:00:00 2023-10-27 00:00:00 Odessa Larsen - External Tobacco use and exposure 2023-10-27 00:00:00 2023-10-27 00:00:00 Smokeless tobacco non-user Odessa Larsen - External History of Social function 2023-10-27 00:00:00 2023-10-27 00:00:00 Odessa Larsen - External Exposure to SARS-CoV-2 (event) 2022-05-08 00:00:00 2022-05-18 10:21:00 Not sure [facility] Sex 2022-02-27 16:08:02 2022-02-27 16:08:02 Male (finding) Odessa Larsen - External Sex assigned at 1990 00:00:00 1990 00:00:00 Odessa Larsen - External Smoking Status Start Date Stop Date Source Tobacco smoking consumption unknown [facility] Smokes tobacco daily 2023-10-27 00:00:00 Odessa Hawkins External Never smoked tobacco [facility] Medications Ordered Medication Name Filled Medication Name Start Date Stop Date Current Medication? Ordering Clinician Indication Dosage Frequency Signature (SIG) Comments Components Source Methylpredn isolone Acetate (Depo-Medro l) 40 mg/ml - Physician Administere d (J1030) 05-16 10:42: 54 No [id number] 80mg 80 mg, Physician Administer ed, ONCE, 1 dose, On Thu05/16/24 at 1015 Odessa corley Multiple Vitamin (MULTI VITAMIN DAILY OR) 05-16 09:48: 53 Yes Take by mouth. Odessa corley Multiple Vitamin (MULTI VITAMIN DAILY OR) 05-10 14:31: 13 Yes Take by mouth. Odessa corley Varenicline Tartrate 1 MG oral Tablet 05-10 00:00: 00 Yes [id number] 1mg Q.5D Take 1 tablet (1 mg total) by mouth 2 times daily. Odessa corley Multiple Vitamin (MULTI VITAMIN DAILY OR) 04-26 16:20: 32 Yes Take by mouth. Odessa corley Multiple Vitamin (MULTI VITAMIN DAILY OR) 04-11 16:36: 11 Yes Take by mouth. Odessa corley Varenicline Tartrate, Starter, 0.5 MG X 11 & 1 MG X 42 oral Tablet Therapy Pack 04-11 00:00: 00 Yes [id number] Use as directed on package instructio ns, try to quit smoking after 1 week.. Odessa corley Methylpredn isolone Acetate (Depo-Medro l) 40 mg/ml - Physician Administere d (J1030) 2023-03 17:02: 32 No [id number] 9104 80mg 80 mg, Physician Administer ed, ONCE, 1 dose, On Thu12/14/23 at 1600 Odessa corley Celecoxib (CeleBREX) 200 MG oral Capsule 10-26 00:00: 00 04-11 00:00 :00 No [id number] 200mg Q.5D Take 1 capsule (200 mg total) by mouth 2 times daily as needed for pain (pain). Odessa corley Vital Signs Vital Name Observation Time Observation Value Comments S ource Body height 2024-05-18 18:55:00 180.3 cm Odessa Seybold - External Body weight 2024-05-18 18:55:00 55.792 kg Odessa Seybold - External BMI 2024-05-18 18:55:00 17.16 kg/m2 Odessa Seybold - External Body height 2024-05-16 14:47:00 180.3 cm Odessa Seybold - External Body weight 2024-05-16 14:47:00 55.792 kg from 05/13/2024 appt Odessa Seybold - External BMI 2024-05-16 14:47:00 17.16 kg/m2 Odessa Seybold - External Systolic blood pressure 2024-05-13 20:13:00 115 mm[Hg] Odessa Seybold - External Diastolic blood pressure 2024-05-13 20:13:00 70 mm[Hg] Odessa Seybold - External Heart rate 2024-05-13 20:13:00 85 /min Odessa Seybold - External Body temperature 2024-05-13 20:13:00 36.78 Lucero Odessa Seybold - External Respiratory rate 2024-05-13 20:13:00 15 /min Odessa Seybold - External Body weight 2024-05-13 20:13:00 55.792 kg Odessa Seybold - External BMI 2024-05-13 20:13:00 17.16 kg/m2 Odessa Seybold - External Oxygen saturation in Arterial blood by Pulse oximetry 2024-05-13 20:13:00 99 /min Odessa Seybold - External Systolic blood pressure 2024-05-02 21:50:00 107 mm[Hg] Odessa Seybold - External Diastolic blood pressure 2024-05-02 21:50:00 66 mm[Hg] Odessa Seybold - External Heart rate 2024-05-02 21:50:00 82 /min Odessa Seybold - External Body temperature 2024-05-02 21:50:00 36.56 Lucero Odessa Seybold - External Respiratory rate 2024-05-02 21:50:00 16 /min Odessa Seybold - External Body height 2024-05-02 21:50:00 180.3 cm Odessa Seybold - External Body weight 2024-05-02 21:50:00 55.792 kg Odessa Seybold - External BMI 2024-05-02 21:50:00 17.16 kg/m2 Odessa Seybold - External Oxygen saturation in Arterial blood by Pulse oximetry 2024-05-02 21:50:00 99 /min Odessa Seybold - External Systolic blood pressure 2024-04-26 22:16:00 116 mm[Hg] Odessa Seybold - External Diastolic blood pressure 2024-04-26 22:16:00 64 mm[Hg] Odessa Seybold - External Heart rate 2024-04-26 22:16:00 88 /min Odessa Seybold - External Body temperature 2024-04-26 22:16:00 36.89 Lucero Odessa Seybold - External Respiratory rate 2024-04-26 22:16:00 20 /min Odessa Seybold - External Body height 2024-04-26 22:16:00 180.3 cm Odessa Seybold - External Body weight 2024-04-26 22:16:00 55.906 kg Odessa Seybold - External BMI 2024-04-26 22:16:00 17.19 kg/m2 Odessa Seybold - External Oxygen saturation in Arterial blood by Pulse oximetry 2024-04-26 22:16:00 98 /min Odessa Seybold - External Systolic blood pressure 2024-04-11 22:31:00 112 mm[Hg] Odessa Seybold - External Diastolic blood pressure 2024-04-11 22:31:00 70 mm[Hg] Odessa Seybold - External Heart rate 2024-04-11 22:31:00 80 /min Odessa Seybold - External Body temperature 2024-04-11 22:31:00 36.78 Lucero Odessa Seybold - External Respiratory rate 2024-04-11 22:31:00 18 /min Odessa Seybold - External Body height 2024-04-11 22:31:00 180.3 cm Odessa Seybold - External Body weight 2024-04-11 22:31:00 57.153 kg Odessa Seybold - External BMI 2024-04-11 22:31:00 17.57 kg/m2 Odessa Seybold - External Oxygen saturation in Arterial blood by Pulse oximetry 2024-04-11 22:31:00 97 /min Odessa Larsen - External Body height 2023-12-14 20:42:00 180.3 cm Odessa Larsen - External Body weight 2023-12-14 20:42:00 56.246 kg Odessa Pantojaold - External BMI 2023-12-14 20:42:00 17.29 kg/m2 Odessa Rosarioybold - External Systolic blood pressure 2023-10-27 14:52:00 125 mm[Hg] Odessa Rosarioybold - External Diastolic blood pressure 2023-10-27 14:52:00 81 mm[Hg] Odessa Rosarioybold - External Heart rate 2023-10-27 14:52:00 78 /min Odessa Rosarioybold - External Body temperature 2023-10-27 14:52:00 36.56 Lucero Odessa Rosarioybold - External Respiratory rate 2023-10-27 14:52:00 16 /min Odessa Larsen - External Body weight 2023-10-27 14:52:00 56.246 kg Odessa Larsen - External Oxygen saturation in Arterial blood by Pulse oximetry 2023-10-27 14:52:00 100 /min Odessa Pantojaold - External Systolic blood pressure 2022-05-18 15:46:00 118 mm[Hg] [facility] Diastolic blood pressure 2022-05-18 15:46:00 73 mm[Hg] [facility] Heart rate 2022-05-18 15:46:00 93 /min [facility] Body temperature 2022-05-18 15:46:00 36.89 Lucero [facility] Respiratory rate 2022-05-18 15:46:00 16 /min [facility] Body weight 2022-05-18 15:46:00 59.421 kg [facility] BMI 2022-05-18 15:46:00 18.27 kg/m2 [facility] Oxygen saturation in Arterial blood by Pulse oximetry 2022-05-18 15:46:00 99 /min [facility] Procedures Procedure Date / Time Performed Performing Clinician Source ASSIGNMENT OF BENEFITS 2022-05-18 15:24:23 Docto r Unassigned, Pass Christian [facility] PATIENT FINANCIAL RESPONSIBILITY - ALL FORMS Doctor Unassigned, Pass Christian [facility] Encounters Start Date/Time End Date/Time Encounter Type Admission Type Attending [facility] Care Department Encounter ID Source 2024-05-18 14:00:00 2024-05-18 14:00:00 Outpatient VICKEY CHAIDEZ ODESSA MONTAÑO [id number] [facility] 2024-05-18 00:00:00 2024-05-18 00:00:00 Outpatient MD ODESSA EDGAR [id number] [facility] 2024-05-16 10:00:00 2024-05-16 10:00:00 Outpatient CECILIA GARCIA [id number] [facility] 2024-05-16 09:05:00 2024-05-16 09:05:00 Outpatient [id number] ODESSA MONTAÑO [id number] [facility] 2024-05-13 15:00:00 2024-05-13 15:00:00 Outpatient ANTHONY JUNG [id number] [facility] 2024-05-10 00:00:00 2024-05-10 00:00:00 Outpatient BALDOMERO OLSON [id number] [facility] 2024-05-10 00:00:00 2024-05-10 00:00:00 Outpatient BALDOMERO OLSON [id number] [facility] 2024-05-02 16:00:00 2024-05-02 16:00:00 Outpatient [facility]THONY JUNG [id number] [facility] 2024-04-29 08:05:00 2024-04-29 08:05:00 Outpatient [id number] ODESSA MONTAÑO [id number] [facility] 2024-04-28 00:00:00 2024-04-28 00:00:00 Outpatient BALDOMERO OLSON [id number] [facility] 2024-04-28 00:00:00 2024-04-28 00:00:00 Outpatient BALDOMERO OLSON [id number] [facility] 2024-04-28 00:00:00 2024-04-28 00:00:00 Outpatient OLSON, BALDOMERO ODESSA MONTAÑO [id number] Odessa Rosarioiliana 2024-04-28 00:00:00 2024-04-28 00:00:00 Outpatient OLSON, BALDOMERO [facility]DESSA MONTAÑO [id number] [facility] 2024-04-27 00:00:00 2024-04-27 00:00:00 Outpatient OLSON, BALDOMERO ODESSA MONTAÑO [id number] [facility] 2024-04-27 00:00:00 2024-04-27 00:00:00 Outpatient OLSON, BALDOMERO ODESSA MONTAÑO [id number] [facility] 2024-04-27 00:00:00 2024-04-27 00:00:00 Outpatient OLSON, BALDOMERO ODESSA MONTAÑO [id number] [facility] 2024-04-27 00:00:00 2024-04-27 00:00:00 Outpatient BHAGIA, BRAYDEN MONTAÑO [id number] [facility] 2024-04-26 16:30:00 2024-04-26 16:30:00 Outpatient OLSON, BALDOMERO [facility] [id number] [facility]24-04-25 16:00:00 2024-04-25 16:00:00 Outpatient ZHUO, ANTHONY ODESSA MONTAÑO [id number] [facility] 2024-04-18 16:25:00 2024-04-18 16:25:00 Outpatient [id number] [facility] [id number] [facility] 2024-04-13 00:00:00 2024-04-13 00:00:00 Outpatient OLSON, BALDOMERO MONTAÑO [id number] Odessa Seybold 2024-04-11 17:15:00 2024-04-11 17:15:00 Outpatient [id number] ODESSA MONTAÑO [id number] [facility] 2024-04-11 16:30:00 2024-04-11 16:30:00 Outpatient OLSON, BALDOMERO MONTAÑO [id number] [facility] 2023-12-15 10:30:00 2023-12-15 10:30:00 Outpatient DALLAS MCKEE [id number] [facility] 2023-12-14 15:30:00 2023-12-14 15:30:00 Outpatient CECILIA GARCIA [id number] [facility] 2023-12-09 15:45:00 2023-12-09 15:45:00 Outpatient ODESSA MONTAÑO [id number] [facility] 2023-11-23 16:10:00 2023-11-23 16:10:00 Outpatient ODESSA BETANCOURTSEY [id number] [facility] 2023-11-23 14:20:00 2023-11-23 14:20:00 Outpatient CECILIA GARCIA [id number] [facility] 2023-10-27 10:00:00 2023-10-27 10:00:00 Outpatient DALLAS MCKEE [id number] [facility] 2022-05-18 10:40:00 2022-05-18 11:00:00 Nurse Visit Nurse, [facility] Unknown, Attending Rae Crystal [facility] [id number] [facility] 2022-05-18 10:40:00 2022-05-18 10:40:00 Outpatient PALOMO SMILEY [facility] [id number] [facility] 2022-05-18 00:00:00 2022-05-18 00:00:00 Orders Only Doctor Unassigned, Pass Christian [facility] [id number] [facility] 2020-01-28 15:45:02 2020-01-28 16:05:02 Laboratory Only Lab, Adc Fam Pob Margaret [facility] [id number] [facility] 2020-01-28 15:40:00 2020-01-28 15:40:00 Outpatient MARGARET HANSEN [facility] [id number] [facility] Orders Only Doctor Unassigned, Pass Christian [facility] [id number] [facility] Notes Date/Time Note Provider Source 2024-05-16 09:48:54 Chief Complaint Patient presents with Shoulder Pain Follow up left shoulder pain, requesting injection PL5/10 NIKKO Estrada [facility] 2024-05-13 15:13:53 Samara Campbell is here today for a Vasectomy, patient identified by name and . Patient acknowledges purpose of procedure and associated risks. electronic consent has been obtained: Yes Vitals signs have been taken and documented. No Known Allergies Patient scrotum shaved prior to arriving today. Patient is instructed to remain in supine position until discharged by nurse after the procedure. Wolf LVN [facility] 2024-05-02 15:49:51 Chief Complaint Patient presents with Consultation For Vasectomy Milly Beltre [facility] 2024-04-26 16:20:33 Chief Complaint Patient presents with Follow-up Concerned about weight loss. All labs where fine Lesly Ralph LVN [facility] 2024-04-11 16:36:12 Chief Complaint Patient presents with Physical Fasting for labs Lesly Ralph LVN [facility] 2023-12-14 15:43:32 Chief Complaint Patient presents with Follow-Up Visit Patient is here for left shoulder no changes or no recent injuries noni 11/23/23 patient requesting injection and MRI results. DENIS Motta [facility] 2023-11-23 14:21:10 Chief Complaint Patient presents with Shoulder Pain Left shoulder pain 2 months after fall roller skating [facility]
[2024-05-26] MEDS ORDERED: TETRACAINE HCL 0.5% 4ML OPTH ONE (23:04)
[2024-05-26] MEDS ORDERED: FLUORESCEIN SODIUM 1 MG/WRAP ONE (23:04)
[2024-05-26] MEDS ORDERED: CYCLOPENTOLATE 2% OPTH 2 ML ONE (23:33)
[2024-05-26] MEDS ORDERED: TOBRAMYCIN SULF 0.3% OPTH OINT ONE (23:35)
[2024-05-26] MEDS ORDERED: IBUPROFEN 200 MG TAB PO ONE (23:56)
[2024-05-26] MEDS ORDERED: HYDROCODONE/APAP 10/325 TAB ONE (23:57)
[2024-05-26] MEDS ORDERED: IBUPROFEN 400 MG TAB ONE (23:57)
--- NOTE | 2024-05-27 | ER ---
Nurse's Notes [facility] Name: Job Campbell Jr Age: 33 yrs Sex: Male : 1990 Arrival Date: 05/26/2024 Time: 22:43 Bed 8 Private MD: Diagnosis: Foreign body in cornea, left eye Presentation: 05/26 23:11 Chief complaint: Patient states: something in left eye. Coronavirus screen: Client vc1 denies travel out of the [place] in the last 14 days. At this time, the client does not indicate any symptoms associated with coronavirus-19. Ebola Screen: Patient negative for fever greater than or equal to 101.5 degrees Fahrenheit, and additional compatible Ebola Virus Disease symptoms Patient denies exposure to infectious person. Patient denies travel to an Ebola-affected area in the 21 days before illness onset. No symptoms or risks identified at this time. Initial Sepsis Screen: Does the patient meet any 2 criteria? No. Patient's initial sepsis screen is negative. Does the patient have a suspected source of infection? No. Patient's initial sepsis screen is negative. Risk Assessment: Do you want to hurt yourself or someone else? Patient reports no desire to harm self or others. Onset of symptoms was May 26, 2024. 23:11 Method Of Arrival: Ambulatory vc1 23:11 Acuity: SUSANNA 4 vc1 Triage Assessment: 23:16 General: Appears in no apparent distress. uncomfortable, slender, well developed, well vc1 nourished, Behavior is calm, cooperative, appropriate for age. Pain: Complains of pain in left eye Pain does not radiate. Quality of pain is described as burning, itching. EENT: Sclera/Cornea are reddened in left eye. Neuro: Level of Consciousness is awake, alert, obeys commands, Oriented to person, place, time, situation, Appropriate for age. Cardiovascular: Capillary refill < 3 seconds Patient's skin is warm and dry. Respiratory: Airway is patent Respiratory effort is even, unlabored, Respiratory pattern is regular, symmetrical. GI: No deficits noted. No signs and/or symptoms were reported involving the gastrointestinal system. : No deficits noted. No signs and/or symptoms were reported regarding the genitourinary system. Derm: Skin is intact, is healthy with good turgor, Skin is dry, Skin is normal, Skin temperature is warm. Musculoskeletal: Circulation, motion, and sensation intact. Range of motion: intact in all extremities. Historical: - Allergies: 23:14 No Known Allergies; vc1 - Home Meds: 23:14 Chantix oral [Active]; Men's One Daily 400-20-300 mcg oral tablet [Active]; vc1 - PMHx: 23:14 None; vc1 - PSHx: 23:14 Vasectomy; vc1 - Immunization history:: Client reports having NOT received the Covid vaccine. Flu vaccine is not up to date. - Infectious Disease History:: Denies. - Social history:: Smoking status: Patient reports the use of cigarette tobacco products, 5-6/day, Reported history of juuling and/or vaping. - Family history:: not pertinent. Screenin:18 [facility] ED Fall Risk Assessment (Adult) History of falling in the last 3 months, vc1 including since admission No falls in past 3 months (0 pts) Confusion or Disorientation No (0 pts) Intoxicated or Sedated No (0 pts) Impaired Gait No (0 pts) Mobility Assist Device Used No (0 pt) Altered Elimination No (0 pt) Score/Fall Risk Level 0 - 2 = Low Risk Oriented to surroundings, Maintained a safe environment, Educated pt \T\ family on fall prevention, incl call for assistance when getting out of bed, Assessed \T\ reinforced patient's understanding of fall precautions, Hourly rounding (assess needs \T\ fall precautionary measures) done. Abuse screen: Denies threats or abuse. Nutritional screening: No deficits noted. Tuberculosis screening: No symptoms or risk factors identified. Assessment: 23:37 Reassessment: Patient appears in no apparent distress at this time. Patient and/or bm8 family updated on plan of care and expected duration. Pain level reassessed. Patient is alert, oriented x 3, equal unlabored respirations, skin warm/dry/pink. applied eye patch to left eye following procedure performed by provider. Patient states symptoms have improved. Vital Signs: 23:11 BP 122 / 73; Pulse 76; Resp 16; Temp 97.9; Pulse Ox 98% ; Weight 56.7 kg; Height 5 ft. vc1 11 in. ; 23:37 BP 120 / 79; Pulse 80; Resp 18; Temp 97.9; Pulse Ox 98% ; Pain 0/10; bm8 05/27 00:00 BP 139 / 96; Pulse 87; Resp 17; Temp 97.9; Pulse Ox 100% ; Pain 0/10; bm8 05/26 23:11 Body Mass Index 17.43 (56.70 kg, 180.34 cm) vc1 23:37 Pain Scale: Adult bm8 05/27 00:00 Pain Scale: Adult bm8 Martha Coma Score: 05/26 23:37 Eye Response: spontaneous(4). Motor Response: obeys commands(6). Verbal Response: bm8 oriented(5). Total: 15. 05/27 00:00 Eye Response: spontaneous(4). Motor Response: obeys commands(6). Verbal Response: bm8 oriented(5). Total: 15. ED Course: 05/26 22:48 Patient arrived in ED. gm2 22:51 Chi George MD is Attending Physician. [facility] 23:14 Triage completed. vc1 23:16 Arm band placed on right wrist. vc1 23:18 Patient has correct armband on for positive identification. Bed in low position. Call vc1 light in reach. Provided Education on: eye exam. Pulse ox on. NIBP on. 23:19 Assist provider with eye exam of left eye. using fluorescein stain, Performed by Chi George MD Patient tolerated well. Patient did not have IV access during this emergency room visit. 23:37 Omar Diaz, VEDA is Primary Nurse. bm8 23:59 Ankit Stewart MD is Referral Physician. heather Administered Medications: 23:20 Drug: Tetracaine Ophthalmic Drops 0.5 % 1 drops Ophthalmic once {Note: administered by vc1 Dr. George.} Route: Ophthalmic; Site: left eye; 05/27 00:01 Follow up: Response: No adverse reaction 8 05/26 23:38 Drug: Tobrex Ophthalmic Ointment 0.3 % 1 application Ophthalmic in left eye once {Note: bm8 by provider.} Route: Ophthalmic; Site: left eye; 05/27 00:01 Follow up: Response: No adverse reaction 8 05/26 23:38 Drug: Cyclopentolate Drops 0.5 % Ophthalmic Drops (0.5 %) 1 drops Ophthalmic once bm8 {Note: by provider.} Route: Ophthalmic; Site: left eye; 05/27 00:01 Follow up: Response: No adverse reaction bm8 00:00 Drug: [place] PO 10 mg-325 mg 1 tabs PO once Route: PO; bm8 00:00 Follow up: Response: No adverse reaction bm8 00:00 Drug: Ibuprofen PO 600 mg PO once Route: PO; bm8 00:00 Follow up: Response: No adverse reaction bm8 Medication: 05/26 23:19 VIS not applicable for this client. vc1 Outcome: 05/27 00:00 Discharge ordered by . heather 00:00 Discharged to home ambulatory, bm8 00:00 Condition: stable 00:00 Discharge instructions given to patient, Instructed on discharge instructions, follow up and referral plans. no drinking with medication, no driving heavy equipment, medication usage, safety practices, Demonstrated understanding of instructions, follow-up care, medications, 00:01 Prescriptions given X 2, bm8 00:09 Patient left the ED. bm8 Signatures: Chi George MD MD cha Calcote, Vanessa, RN RN 1 Isabell Diego 2 Omar Diaz RN RN bm8
--- NOTE | 2024-05-27 | EDPHYS ---
Physician Documentation [facility] Name: Job Campbell Jr Age: 33 yrs Sex: Male : 1990 Arrival Date: 05/26/2024 Time: 22:43 Bed 8 Private MD: SANDRA Physician Chi George HPI: 05/26 23:52 This 33 yrs old Male presents to ER via Ambulatory with complaints of Foreign heather Body In Eye. 23:52 The patient is experiencing foreign body sensation, pain, redness, The patient heather sustained Unknown. to the left eye. Onset: The symptoms/episode began/occurred 1 day(s) ago. Duration: the symptoms are continuous. Aggravated by blinking, closing eye, light, opening eye, rubbing. Associated signs and symptoms: Pertinent positives: None. Pertinent negatives: None. Patient wears glasses, wears soft contacts. Severity of symptoms: At their worst the symptoms were moderate in the emergency department the symptoms are unchanged. The patient has not experienced similar symptoms in the past. Historical: - Allergies: 23:14 No Known Allergies; vc1 - Home Meds: 23:14 Chantix oral [Active]; Men's One Daily 400-20-300 mcg oral tablet [Active]; vc1 - PMHx: 23:14 None; vc1 - PSHx: 23:14 Vasectomy; vc1 - Immunization history:: Client reports having NOT received the Covid vaccine. Flu vaccine is not up to date. - Infectious Disease History:: Denies. - Social history:: Smoking status: Patient reports the use of cigarette tobacco products, 5-6/day, Reported history of juuling and/or vaping. - Family history:: not pertinent. ROS: 23:54 Constitutional: Negative for fever, chills, and weight loss, ENT: Negative for injury, heather pain, and discharge, Neck: Negative for injury, pain, and swelling, Cardiovascular: Negative for chest pain, palpitations, and edema, Respiratory: Negative for shortness of breath, cough, wheezing, and pleuritic chest pain, Abdomen/GI: Negative for abdominal pain, nausea, vomiting, diarrhea, and constipation, Back: Negative for injury and pain, : Negative for injury, bleeding, discharge, and swelling, MS/Extremity: Negative for injury and deformity, Skin: Negative for injury, rash, and discoloration, Neuro: Negative for headache, weakness, numbness, tingling, and seizure, Psych: Negative for depression, anxiety, suicide ideation, homicidal ideation, and hallucinations, Allergy/Immunology: Negative for hives, rash, and allergies, Endocrine: Negative for neck swelling, polydipsia, polyuria, polyphagia, and marked weight changes, Hematologic/Lymphatic: Negative for swollen nodes, abnormal bleeding, and unusual bruising, 23:54 Eyes: Positive for foreign body sensation, pain, redness, Exam: 23:54 Constitutional: This is a well developed, well nourished patient who is awake, alert, heather and in no acute distress. Head/Face: Normocephalic, atraumatic. ENT: Nares patent. No nasal discharge, no septal abnormalities noted. Tympanic membranes are normal and external auditory canals are clear. Oropharynx with no redness, swelling, or masses, exudates, or evidence of obstruction, uvula midline. Mucous membranes moist. Neck: Trachea midline, no thyromegaly or masses palpated, and no cervical lymphadenopathy. Supple, full range of motion without nuchal rigidity, or vertebral point tenderness. No Meningismus. Chest/axilla: Normal chest wall appearance and motion. Nontender with no deformity. No lesions are appreciated. Cardiovascular: Regular rate and rhythm with a normal S1 and S2. No gallops, murmurs, or rubs. Normal PMI, no JVD. No pulse deficits. Respiratory: Lungs have equal breath sounds bilaterally, clear to auscultation and percussion. No rales, rhonchi or wheezes noted. No increased work of breathing, no retractions or nasal flaring. Abdomen/GI: Soft, non-tender, with normal bowel sounds. No distension or tympany. No guarding or rebound. No evidence of tenderness throughout. Back: No spinal tenderness. No costovertebral tenderness. Full range of motion. Skin: Warm, dry with normal turgor. Normal color with no rashes, no lesions, and no evidence of cellulitis. MS/ Extremity: Pulses equal, no cyanosis. Neurovascular intact. Full, normal range of motion., bilateral aka Neuro: Awake and alert, GCS 15, oriented to person, place, time, and situation. Cranial nerves II-XII grossly intact. Motor strength 5/5 in all extremities. Sensory grossly intact. Cerebellar exam normal. Normal gait. Psych: Awake, alert, with orientation to person, place and time. Behavior, mood, and affect are within normal limits. 23:54 Eyes: Periorbital structures: erythema, that is mild, on the medial aspect of conjunctiva of left eye, lateral aspect of conjunctiva of left eye and left pupil, Pupils: equal, round, and reactive to light and accomodation, Extraocular movements: intact throughout, Conjunctiva: injected, in the left eye, Corneas: foreign body, on the left, at 3 o'clock, Sclera: no appreciated abnormality, Anterior chamber: normal, Lids and lashes: erythema, Vital Signs: 23:11 BP 122 / 73; Pulse 76; Resp 16; Temp 97.9; Pulse Ox 98% ; Weight 56.7 kg; Height 5 ft. vc1 11 in. ; 23:37 BP 120 / 79; Pulse 80; Resp 18; Temp 97.9; Pulse Ox 98% ; Pain 0/10; bm8 05/27 00:00 BP 139 / 96; Pulse 87; Resp 17; Temp 97.9; Pulse Ox 100% ; Pain 0/10; bm8 05/26 23:11 Body Mass Index 17.43 (56.70 kg, 180.34 cm) vc1 23:37 Pain Scale: Adult bm8 05/27 00:00 Pain Scale: Adult bm8 Martha Coma Score: 05/26 23:37 Eye Response: spontaneous(4). Motor Response: obeys commands(6). Verbal Response: bm8 oriented(5). Total: 15. 05/27 00:00 Eye Response: spontaneous(4). Motor Response: obeys commands(6). Verbal Response: bm8 oriented(5). Total: 15. Procedures: 05/26 23:57 Foreign Body Removal: unknown, from the left by needle, Dressing: eye pad was placed, heather The patient tolerated the removal well. MDM: 22:51 Medical Screening Exam initiated heather 23:56 Differential diagnosis: Corneal abrasion of Corneal ulcer of Foreign body in left eye. [facility] Data reviewed: vital signs, nurses notes. Consideration of Admission/Observation Escalation of care including admission/observation considered. I considered the following discharge prescriptions or medication management in the emergency department Medications were administered in the Emergency Department. See MAR. Care significantly affected by the following chronic conditions: none. 23:58 ED course: dw dr ortiz , will see at 10 am. heather 05/26 23:20 Order name: Fluoresene Opth strip; Complete Time: 23:20 [facility] 05/26 23:20 Order name: Eye Tray; Complete Time: 23:20 [facility] 05/26 23:32 Order name: Misc. Order: patch; Complete Time: 23:39 heather Administered Medications: 23:20 Drug: Tetracaine Ophthalmic Drops 0.5 % 1 drops Ophthalmic once {Note: administered by 1 Dr. George.} Route: Ophthalmic; Site: left eye; 05/27 00:01 Follow up: Response: No adverse reaction bm8 05/26 23:38 Drug: Tobrex Ophthalmic Ointment 0.3 % 1 application Ophthalmic in left eye once {Note: bm8 by provider.} Route: Ophthalmic; Site: left eye; 05/27 00:01 Follow up: Response: No adverse reaction bm8 05/26 23:38 Drug: Cyclopentolate Drops 0.5 % Ophthalmic Drops (0.5 %) 1 drops Ophthalmic once bm8 {Note: by provider.} Route: Ophthalmic; Site: left eye; 05/27 00:01 Follow up: Response: No adverse reaction bm8 00:00 Drug: [place] PO 10 mg-325 mg 1 tabs PO once Route: PO; bm8 00:00 Follow up: Response: No adverse reaction bm8 00:00 Drug: Ibuprofen PO 600 mg PO once Route: PO; bm8 00:00 Follow up: Response: No adverse reaction bm8 Disposition Summary: 05/27/24 00:00 Discharge Ordered Notes: Location: Home heather Problem: new heather Symptoms: are unchanged heather Condition: Stable heather Diagnosis - Foreign body in cornea, left eye heather Followup: heather - With: Ankit Ortiz MD - When: Tomorrow - Reason: Recheck today's complaints, Re-evaluation by your physician Discharge Instructions: - Discharge Summary Sheet heather - Corneal Ulcer heather - Corneal Abrasion heather - Corneal Abrasion, [id number] heather Forms: - Medication Reconciliation Form heather - Antibiotic Education heather - Prescription Opioid Use heather - Patient Portal Instructions heather - Leadership Thank You Letter heather Prescriptions: - Tobrex 0.3 % Ophthalmic ointment - instill 1 application OPHTHALMIC route every 4 to 6 hours for 5 days; 3.5 gram; heather Refills: 0, Product Selection Permitted - Ibuprofen 600 mg Oral tablet - take 1 tablet ORAL route every 6 hours As needed take with food; 20 tablet; heather Refills: 0, Product Selection Permitted Signatures: Chi George MD MD cha Calcote, Vanessa RN RN vc1 Omar Diaz RN RN bm8
[2024-05-27 00:14] VITALS: TEMP 97.9
[2024-05-27 00:17] VITALS: BP 139/96; O2SAT 100
== END 2024-05-27 00:09 | disposition home or self-care (01) ==
LOC: ER 22:43
DX: T15.02XA Foreign body in cornea, left eye, initial encounter (principal); Z72.0 Tobacco use
CPT/HCPCS: 99284

== ENCOUNTER 2024-07-16 08:14 | Emergency (ER) | payer SELFPAY ==
--- OUTSIDE RECORDS SUMMARY | 2024-07-16 08:17 | XMS REPORT | Continuity of Care Document ---
Author Name Unknown Address [address] [place] [address] [facility] [place] Address [address] [place] [address] Care Team Providers Care Measurement Department Chief Clerk Name Role Phone Clint Nolan Primary Care Physician [phone] ANTHONY JUNG Attending Clinician Unavailable [facility] B Attending Clinician Unavaila BALDOMERO Bui Attending Clinician Unavailable RADHA BALDERAS Attending Clinician Unavailab rigoberto PHILIPPE MD Attending Clinician Unavailab MATEO John Attending Clinician Unavailable [id number] Attending Clinician Unavailable VICKEY CHAIDEZ Attending Clinician Unavailable CECILIA GARCIA Attending Clinician Unavaila ble LAB47 Attending Clinician Unavailable BRAYDEN HUERTA Attending Clinician Unavailable DALLAS MCKEE Attending Clinician Unavailable , [facility] Attending Clinician Un available Unknown, Attending Attending Clinician UnavailRae Sherman MD Attending Clinician [phone] PALOMO WOODY Attending Clinician Unavailab rigoberto Doctor Unassigned, [place] Attending Clinician U navailable Lab, Adc Fam Pob I Attending Clinician UnavailMargaret Crow Attending Clinician [phone] MARGARET UMANZOR Attending Clinician Unavailable Payers Payer Name Policy Type Policy Number Effective Date Expirati on Date Source SILVER 5 [facility] 94 9 [id number] 2024 00:00:00 Problems Condition Name Condition Details Condition Category Status Onset Date Resolution Date Last Treatment Date Treating Clinician Comments Source BMI less than 19,adult BMI less than 19,adult Disease Active 2 00:00: 00 Odessa Hawkins Externa l Allergies, Adverse Reactions, Alerts Allergy Name Allergy Type Status Severity Reaction(s) Onset Date Inactive Date Treating Clinician Comments Source NO KNOWN ALLERGIE S Drug Class Active [facility] Social History Social Habit Start Date Stop Date Quantity Comments Source Sexual orientation Eusebio joy Larsen - External History of Occupation Odessa Larsen - External History of tobacco use Cigarette Smoker Odessa barrientos - External Alcoholic beverage intake 2024-05-30 00:00:00 2024-05-30 00:00:00 Lifetime non-drinker (finding) Odessa Hawkins External Education 2023-10-27 00:00:00 2023-10-27 00:00:00 17 Odessa Hawkins External Cigarettes smoked current (pack per day) - Reported 2023-10-27 00:00:00 2023-10-27 00:00:00 Odessa Larsen - External Cigarette pack-years 2023-10-27 00:00:00 2023-10-27 00:00:00 Odessa Larsen - External Tobacco use and exposure 2023-10-27 00:00:00 2023-10-27 00:00:00 Smokeless tobacco non-user Odessa Larsen - External History of Social function 2023-10-27 00:00:00 2023-10-27 00:00:00 Odessa Hawkins External Exposure to SARS-CoV-2 (event) 2022-05-08 00:00:00 2022-05-18 10:21:00 Not sure [facility] Sex 2022-02-27 16:08:02 2022-02-27 16:08:02 Male (finding) Odessa Larsen - External Sex assigned at 1990 00:00:00 1990 00:00:00 Odessa Hawkins External Smoking Status Start Date Stop Date Source Tobacco smoking consumption unknown [facility] Smokes tobacco daily 2023-10-27 00:00:00 Odessa Contreras Never smoked tobacco [facility] Medications Ordered Medication Name Filled Medication Name Start Date Stop Date Current Medication? Ordering Clinician Indication Dosage Frequency Signature (SIG) Comments Components Source Testosteron e Cypionate (DEPO-TESTO STERONE) 200 mg/mL - Every 14 Days 05-31 05:00: 00 Yes [id number] 200mg Odessa corley Multiple Vitamin (MULTI VITAMIN DAILY OR) 05-30 10:19: 33 Yes Take by mouth. Odessa Chaoa barney Multiple Vitamin (MULTI VITAMIN DAILY OR) 05-27 11:16: 15 Yes Take by mouth. Odessa corley Methylpredn isolone Acetate (Depo-Medro l) 40 mg/ml - Physician Administere d (J1030) 05-16 10:42: 54 No [id number] 80mg 80 mg, Physician Administer ed, ONCE, 1 dose, On Thu05/16/24 at 1015 Odessa corley Multiple Vitamin (MULTI VITAMIN DAILY OR) 05-16 09:48: 53 Yes Take by mouth. Odessa Chaoa barney Multiple Vitamin (MULTI VITAMIN DAILY OR) 05-10 14:31: 13 Yes Take by mouth. Odessa corley Varenicline Tartrate 1 MG oral Tablet 05-10 00:00: 00 Yes [id number] 1mg Q.5D Take 1 tablet (1 mg total) by mouth 2 times daily. Odessa Chaoa barney Multiple Vitamin (MULTI VITAMIN DAILY OR) 04-26 16:20: 32 Yes Take by mouth. Odessa Chaoa l Multiple Vitamin (MULTI VITAMIN DAILY OR) 04-11 16:36: 11 Yes Take by mouth. Odessa Chaoa barney Varenicline Tartrate, Starter, 0.5 MG X 11 & 1 MG X 42 oral Tablet Therapy Pack 04-11 00:00: 00 Yes [id number] Use as directed on package instructio ns, try to quit smoking after 1 week.. Odessa corley Methylpredn isolone Acetate (Depo-Medro l) 40 mg/ml - Physician Administere d (J1030) 2023-03 17:02: 32 No [id number] 9104 80mg 80 mg, Physician Administer ed, ONCE, 1 dose, On Thu12/14/23 at 1600 Odessa corley Celecoxib (CeleBREX) 200 MG oral Capsule 10-26 00:00: 00 04-11 00:00 :00 No [id number] 200mg Q.5D Take 1 capsule (200 mg total) by mouth 2 times daily as needed for pain (pain). Odessa corley Vital Signs Vital Name Observation Time Observation Value Comments S ource Systolic blood pressure 2024-05-30 15:18:00 101 mm[Hg] Odessa Rosarioybold - External Diastolic blood pressure 2024-05-30 15:18:00 68 mm[Hg] Odessa ybold - External Heart rate 2024-05-30 15:18:00 76 /min Odessa pedro - External Body temperature 2024-05-30 15:18:00 36.78 Lucero Odessa michailiana - External Respiratory rate 2024-05-30 15:18:00 18 /min Odessa michailiana - External Body height 2024-05-30 15:18:00 180.3 cm Odessa Semichailiana - External Body weight 2024-05-30 15:18:00 55.339 kg Odessa Seybold - External BMI 2024-05-30 15:18:00 17.02 kg/m2 Odessa Larsen - External Oxygen saturation in Arterial blood by Pulse oximetry 2024-05-30 15:18:00 100 /min Odessa michailiana - External Body height 2024-05-18 18:55:00 180.3 cm Odessa michailiana - External Body weight 2024-05-18 18:55:00 55.792 kg Odessa Seybold - External BMI 2024-05-18 18:55:00 17.16 kg/m2 Odessa Seybold - External Body height 2024-05-16 14:47:00 180.3 cm Odessa Rosarioybold - External Body weight 2024-05-16 14:47:00 55.792 [...] Pulse oximetry 2024-04-11 22:31:00 97 /min Odessa Seybold - External Body height 2023-12-14 20:42:00 180.3 cm Odessa Seybold - External Body weight 2023-12-14 20:42:00 56.246 kg Odessa Seybold - External BMI 2023-12-14 20:42:00 17.29 kg/m2 Odessa Seybold - External Systolic blood pressure 2023-10-27 14:52:00 125 mm[Hg] Odessa Seybold - External Diastolic blood pressure 2023-10-27 14:52:00 81 mm[Hg] Odessa Rosarioybold - External Heart rate 2023-10-27 14:52:00 78 /min Odessa Rosarioybiliana - External Body temperature 2023-10-27 14:52:00 36.56 Lucero Odessa Rosarioybold - External Respiratory rate 2023-10-27 14:52:00 16 /min Odessa Rosarioybiliana - External Body weight 2023-10-27 14:52:00 56.246 kg Odessa Larsen - External Oxygen saturation in Arterial blood by Pulse oximetry 2023-10-27 14:52:00 100 /min Odessa Rosarioybold - External Systolic blood pressure 2022-05-18 15:46:00 118 mm[Hg] [facility] Diastolic blood pressure 2022-05-18 15:46:00 73 mm[Hg] [facility] Heart rate 2022-05-18 15:46:00 93 /min [facility] Body temperature 2022-05-18 15:46:00 36.89 Lucero [facility] Respiratory rate 2022-05-18 15:46:00 16 /min [facility] Body weight 2022-05-18 15:46:00 59.421 kg [facility] BMI 2022-05-18 15:46:00 18.27 kg/m2 [facility] Oxygen saturation in Arterial blood by Pulse oximetry 2022-05-18 15:46:00 99 /min [facility] Procedures Procedure Date / Time Performed Performing Clinician Source ASSIGNMENT OF BENEFITS 2022-05-18 15:24:23 Docto r Unassigned, [place] [facility] PATIENT FINANCIAL RESPONSIBILITY - ALL FORMS Doctor Unassigned, [place] [facility] Encounters Start Date/Time End Date/Time Encounter Type Admission Type Attending Clinicians Care Facility Care Department Encounter ID Source 2024-09-09 10:45:00 2024-09-09 10:45:00 Outpatient ANTHONY JUNG [id number] Odessa Larsen 2024-07-18 08:00:00 2024-07-18 08:00:00 Outpatient MILAGROS ANGULO [id number] Odessa Larsen 2024-07-15 00:00:00 2024-07-15 00:00:00 Outpatient OLSONBALDOMERO LOMELI ODESSA [id number] [facility]24-07-12 08:15:00 2024-07-12 08:15:00 Outpatient KEV, MILAGROS MONTAÑO ODESSA [id number] [facility] 2024-07-11 13:30:00 2024-07-11 13:30:00 Outpatient ANDREYRADHA LARSON ODESSA MONTAÑO [id number] [facility] 2024-07-01 00:00:00 2024-07-01 00:00:00 Outpatient OLSONBALDOMERO LOMELI ODESSA MONTAÑO [id number] [facility] 2024-06-28 08:15:00 2024-06-28 08:15:00 Outpatient KEV, MILAGROS ODESSA MONTAÑO [id number] [facility] 2024-06-23 00:00:00 2024-06-23 00:00:00 Outpatient MD ODESSA EDGAR [id number] [facility] 2024-06-14 16:15:00 2024-06-14 16:15:00 Outpatient KEV, MILAGROS ODESSA MONTAÑO [id number] [facility] 2024-06-02 00:00:00 2024-06-02 00:00:00 Outpatient OLSONBALDOMERO LOMELI [id number] [facility]24-05-31 16:15:00 2024-05-31 16:15:00 Outpatient KEV, MILAGROS ODESSA MONTA[facility]O [id number] [facility] 2024-05-30 16:00:00 2024-05-30 16:00:00 Outpatient KEV, MILAGROS ODESSA MONTAÑO [id number] [facility] 2024-05-30 09:45:00 2024-05-30 09:45:00 Outpatient FABIANA ANTHONY ODESSA MONTAÑO [id number] [facility] 2024-05-30 00:00:00 2024-05-30 00:00:00 Outpatient OLSONBALDOMERO LOMELI ODESSA MONTAÑO [id number] [facility] 2024-05-30 00:00:00 2024-05-30 00:00:00 Outpatient OLSON, BALDOMERO ODESSA MONTAÑO [id number] Odessa Seybold 2024-05-27 11:20:00 2024-05-27 11:20:00 Outpatient DANIALMATEO ODESSA MONTAÑO [id number] [facility] Seybold 2024-05-27 08:10:00 2024-05-27 08:10:00 Outpatient [id number] ODESSA MONTAÑO [id number] [facility] Seybold 2024-05-27 00:00:00 2024-05-27 00:00:00 Outpatient OLSON, BALDOMEROBRUCE MONTAÑO [id number] [facility] Seybold 2024-05-27 00:00:00 2024-05-27 00:00:00 Outpatient ODESSA MONTAÑO [id number] [facility] 2024-05-18 14:00:00 2024-05-18 14:00:00 Outpatient MAGregorBOMAYRA VICKEY ODESSA MONTAÑO [id number] [facility] 2024-05-18 00:00:00 2024-05-18 00:00:00 Outpatient MD ODESSA EDGAR [id number] [facility] Seybold 2024-05-16 10:00:00 2024-05-16 10:00:00 Outpatient JOSECECILIA [id number] [facility] 2024-05-16 09:05:00 2024-05-16 09:05:00 Outpatient LAB47 ODESSA MONTAÑO [id number] [facility] Seybold 2024-05-13 15:00:00 2024-05-13 15:00:00 Outpatient ANTHONY JUNG [id number] [facility] Seybold 2024-05-10 00:00:00 2024-05-10 00:00:00 Outpatient BALDOMERO OLSON [id number] [facility] Seybold 2024-05-10 00:00:00 2024-05-10 00:00:00 Outpatient BALDOMERO OLSON [id number] [facility] Seybold 2024-05-02 16:00:00 2024-05-02 16:00:00 Outpatient ANTHONY JUNG [id number] [facility] Seybold 2024-04-29 08:05:00 2024-04-29 08:05:00 Outpatient [id number] DOESSA MONTAÑO [id number] [facility] Seybold 2024-04-28 00:00:00 2024-04-28 00:00:00 Outpatient OLSON, BALDOMERO MONTAÑO [id number] [facility] Seybold 2024-04-28 00:00:00 2024-04-28 00:00:00 Outpatient OLSON, BALDOMERO ODESSA MONTAÑO [id number] [facility] Seybold 2024-04-28 00:00:00 2024-04-28 00:00:00 Outpatient OLSON, BALDOMERO ODESSA MONTAÑO [id number] [facility] 2024-04-28 00:00:00 2024-04-28 00:00:00 Outpatient OLSON, BALDOMERO MONTAÑO [id number] [facility] 2024-04-27 00:00:00 2024-04-27 00:00:00 Outpatient OLSON, BALDOMERO ODESSA MONTAÑO [id number] [facility] Seybold 2024-04-27 00:00:00 2024-04-27 00:00:00 Outpatient OLSON, BALDOMERO ODESSA MONTAÑO [id number] [facility] Seybold 2024-04-27 00:00:00 2024-04-27 00:00:00 Outpatient OLSON, BALDOMERO MONTAÑO [id number] [facility] Seybold 2024-04-27 00:00:00 2024-04-27 00:00:00 Outpatient BHAGIA, BRAYDEN MONTAÑO [id number] [facility] Seybold 2024-04-26 16:30:00 2024-04-26 16:30:00 Outpatient OLSON, BALDOMERO MONTAÑO [id number] [facility] Seybold 2024-04-25 16:00:00 2024-04-25 16:00:00 Outpatient ZHUO, ANTHONY MONTAÑO [id number] [facility] Seybold 2024-04-18 16:25:00 2024-04-18 16:25:00 Outpatient [id number] ODESSA MONTAÑO [id number] [facility] Seybold 2024-04-13 00:00:00 2024-04-13 00:00:00 Outpatient BALDOMERO OLSON [id number] [facility] Larsen 2024-04-11 17:15:00 2024-04-11 17:15:00 Outpatient [id number] ODESSA MONTAÑO [id number] [facility] Larsen 2024-04-11 16:30:00 2024-04-11 16:30:00 Outpatient BALDOMERO OLSON ODESSA [id number] [facility] 2023-[facility]-15 10:30:00 2023-12-15 10:30:00 Outpatient DALLAS MCKEE ODESSA [id number] [facility] 2023-12-14 15:30:00 2023-12-14 15:30:00 Outpatient CECILIA GARCIA ODESSA [id number] [facility] 2023-12-09 15:45:00 2023-12-09 15:45:00 Outpatient ODESSA ODESSA [id number] [facility] 2023-11-23 16:10:00 2023-11-23 16:10:00 Outpatient ODESSA ODESSA [id number] [facility] 2023-11-23 14:20:00 2023-11-23 14:20:00 Outpatient CECILIA GARCIA ODESSA [id number] [facility] 2023-10-27 10:00:00 2023-10-27 10:00:00 Outpatient DALLAS MCKEE ODESSA [id number] [facility] 2022-05-18 10:40:00 2022-05-18 11:00:00 Nurse Visit Nurse, [facility] Unknown, Attending Rae Crystal [facility] [id number] [facility] 2022-05-18 10:40:00 2022-05-18 10:40:00 Outpatient PALOMO SMILEY [facility] [id number] [facility] 2022-05-18 00:00:00 2022-05-18 00:00:00 Orders Only Doctor Unassigned, [place] [facility] [id number] [facility] 2020-01-28 15:45:02 2020-01-28 16:05:02 Laboratory Only Lab, Adc Fam Pob Naheed [facility] [id number] [facility] 2020-01-28 15:40:00 2020-01-28 15:40:00 Outpatient Cata [facility]OR [facility] [id number] [facility] Orders Only Doctor Unassigned, [place] [facility] [id number] [facility] Notes Date/Time Note Provider Source 2024-05-30 10:19:36 Chief Complaint Patient presents with Hormone Problem [facility]iana Beltre [facility] 2024-05-16 09:48:54 Chief Complaint Patient presents with Shoulder Pain Follow up left shoulder pain, requesting injection PL5/10 [facility]strada [facility] 2024-05-13 15:13:53 Samara Campbell is here today for a Vasectomy, patient identified by name and . Patient acknowledges purpose of procedure and associated risks. electronic consent has been obtained: Yes Vitals signs have been taken and documented. No Known Allergies Patient scrotum shaved prior to arriving today. Patient is instructed to remain in supine position until discharged by nurse after the procedure. Lyssa Wolf LVN [facility] 2024-05-02 15:49:51 Chief Complaint Patient presents with Consultation For Vasectomy Milly Beltre [facility] 2024-04-26 16:20:33 Chief Complaint Patient presents with Follow-up Concerned about weight loss. All labs where fine Lesly Ralph LVN [facility] 2024-04-11 16:36:12 Chief Complaint Patient presents with Physical Fasting for labs Lesly Ralph LVN [facility] 2023-12-14 15:43:32 Chief Complaint Patient presents with Follow-Up Visit Patient is here for left shoulder no changes or no recent injuries noni 11/23/23 patient requesting injection and MRI results. DENIS Motta [facility] 2023-11-23 14:21:10 Chief Complaint Patient presents with Shoulder Pain Left shoulder pain 2 months after fall roller skating [facility]
--- NOTE | 2024-07-16 08:40 | EDPHYS ---
Physician Documentation [facility] Name: Job Campbell Jr Age: 33 yrs Sex: Male : 1990 Arrival Date: 07/16/2024 Time: 08:14 Bed IW1 Private MD: ED Physician Lokesh Levine HPI: 07/16 08:37 This 33 yrs old Male presents to ER via Ambulatory with complaints of Cough. rn 08:37 Patient reports cough for 1 week. Sore throat as well. Son diagnosed with strep rn recently. Patient reports long smoking history but recently quit about a month ago. Denies shortness of breath. No hemoptysis. No fever.. Historical: - Allergies: 08: No Known Allergies; hb - Home Meds: :34 None [Active]; hb - PMHx: : None; hb - PSHx: 08:28 Vasectomy; hb - Immunization history:: Adult Immunizations up to date. - Infectious Disease History:: Denies. - Family history:: not pertinent. - Social history:: Smoking status: . - Hospitalizations: : No recent hospitalization is reported. ROS: 08:37 Constitutional: Negative for fever, chills, and weight loss, ENT: Positive for sore rn throat Neck: Negative for injury, pain, and swelling, Cardiovascular: Negative for chest pain, palpitations, and edema, Respiratory: Positive for cough Abdomen/GI: Negative for abdominal pain, nausea, vomiting, diarrhea, and constipation, MS/Extremity: Negative for injury and deformity, Neuro: Negative for headache, weakness, numbness, tingling, and seizure, Exam: 08:37 Constitutional: This is a well developed, well nourished patient who is awake, alert, rn and in no acute distress. ENT: Pharyngeal erythema, no stridor or swelling Cardiovascular: Regular rate and rhythm. No pulse deficits. Respiratory: Faint wheezing noted, no retractions or respiratory distress Abdomen/GI: Soft, non-tender MS/ Extremity: Pulses equal, no cyanosis. Neuro: Awake and alert, GCS 15 Vital Signs: 08:27 BP 114 / 76; Pulse 81; Resp 16; Temp 98.9(O); Pulse Ox 99% on R/A; Weight 55.79 kg; hb Height 5 ft. 11 in. ; Pain 6/10; 08:27 Body Mass Index 17.15 (55.79 kg, 180.34 cm) hb 08:27 Pain Scale: Adult hb MDM: 08:19 Medical Screening Exam initiated rn 08:37 Differential Diagnosis: Bronchitis Upper Respiratory Infection Sinusitis Pharyngitis rn Viral Syndrome. Data reviewed: vital signs, nurses notes, and as a result, I will discharge patient. Counseling: I had a detailed discussion with the patient and/or guardian regarding the historical points, exam findings, and any diagnostic results supporting the discharge/admit diagnosis, the need for outpatient follow up, to return to the emergency department if symptoms worsen or persist or if there are any questions or concerns that arise at home. Special discussion: I discussed with the patient/guardian in detail that at this point there is no indication for admission to the hospital. It is understood, however, that if the symptoms persist or worsen the patient needs to return immediately for re-evaluation. 08:37 ED course: No oxygen requirement. No indication for emergent imaging at this time. 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 Administered Medications: No medications were administered Disposition Summary: 07/16/24 08:40 Discharge Ordered Notes: Location: Home rn Problem: new rn Symptoms: have improved rn Condition: Stable rn Diagnosis - Cough rn Followup: rn - With: Private Physician - When: As needed - Reason: Recheck today's complaints, Re-evaluation by your physician Discharge Instructions: - Discharge Summary Sheet rn - Cough, Adult rn Forms: - Medication Reconciliation Form rn - Antibiotic rn neonatal icu - Prescription Opioid Use rn - Patient Portal Instructions rn - Leadership Thank You Letter rn Prescriptions: - albuterol sulfate 90 mcg/actuation Inhalation HFA Aerosol Inhaler - inhale 2 puff INHALATION route every 4 to 6 hours As needed as needed for rn shortness of breath or wheezing; 1 unit; Refills: 0, Product Selection Permitted - Augmentin 875-125 mg Oral Tablet - take 1 tablet ORAL route every 12 hours for 10 days; 20 tablet; Refills: 0, rn Product Selection Permitted - Prednisone 20 mg Oral Tablet - take 3 tablets ORAL route once daily for 5 days; 15 tablet; Refills: 0, Product rn Selection Permitted Signatures: Lokesh Levine MD MD rn Baxter, Heather, RN RN
--- NOTE | 2024-07-16 08:40 | ER ---
Nurse's Notes [facility] Name: Job Campbell Jr Age: 33 yrs Sex: Male : 1990 Arrival Date: 07/16/2024 Time: 08:14 Bed IW1 Private MD: Diagnosis: Cough Presentation: 07/16 08:27 Chief complaint: Sore throat, painful cough, and body aches x 1 week. Son has strep. hb Coronavirus screen: Client presents with at least one sign or symptom that may indicate coronavirus-19. Provider contacted for isolation considerations. Ebola Screen: No symptoms or risks identified at this time. Initial Sepsis Screen: Does the patient meet any 2 criteria? No. Patient's initial sepsis screen is negative. Does the patient have a suspected source of infection? No. Patient's initial sepsis screen is negative. Risk Assessment: Do you want to hurt yourself or someone else? Patient reports no desire to harm self or others. Onset of symptoms was July 09, 2024. 08:27 Method Of Arrival: Ambulatory hb 08:27 Acuity: SUSANNA 4 hb Triage Assessment: 08:27 General: Appears in no apparent distress. Behavior is calm, cooperative. Pain: Pain hb currently is 6 out of 10 on a pain scale. EENT: Reports sore throat. Neuro: Level of Consciousness is awake, alert, obeys commands, Oriented to person, place, time, situation. Cardiovascular: Patient's skin is warm and dry. Respiratory: Reports pain with cough Respiratory effort is even, unlabored, Respiratory pattern is regular, symmetrical. Historical: - Allergies: 08:28 No Known Allergies; hb - Home Meds: 08:34 None [Active]; hb - PMHx: 08:34 None; hb - PSHx: 08:28 Vasectomy; hb - Immunization history:: Adult Immunizations up to date. - Infectious Disease History:: Denies. - Family history:: not pertinent. - Social history:: Smoking status: . - Hospitalizations: : No recent hospitalization is reported. Screenin:33 [facility] ED Fall Risk Assessment (Adult) History of falling in the last 3 months, hb including since admission No falls in past 3 months (0 pts) Confusion or Disorientation No (0 pts) Intoxicated or Sedated No (0 pts) Impaired Gait No (0 pts) Mobility Assist Device Used No (0 pt) Altered Elimination No (0 pt) Score/Fall Risk Level 0 - 2 = Low Risk Oriented to surroundings, Maintained a safe environment, Educated pt \T\ family on fall prevention, incl call for assistance when getting out of bed. Abuse screen: Denies threats or abuse. Denies injuries from another. Nutritional screening: No deficits noted. Tuberculosis screening: No symptoms or risk factors identified. Assessment: 08:33 General: See triage assessment . hb Vital Signs: 08:27 BP 114 / 76; Pulse 81; Resp 16; Temp 98.9(O); Pulse Ox 99% on R/A; Weight 55.79 kg; hb Height 5 ft. 11 in. ; Pain 6/10; 08:27 Body Mass Index 17.15 (55.79 kg, 180.34 cm) hb 08:27 Pain Scale: Adult hb ED Course: 08:17 Patient arrived in ED. al6 08:18 Lokesh Levine MD is Attending Physician. rn 08:27 Arm band placed on. hb 08:28 Triage completed. hb 08:33 Patient has correct armband on for positive identification. Provided Education on: . hb 08:33 No provider procedures requiring assistance completed. Patient did not have IV access hb during this emergency room visit. 08:44 Darlyn Carney, RN is Primary Nurse. hb Administered Medications: No medications were administered Outcome: 08:40 Discharge ordered by . rn 08:44 Discharged to home ambulatory, 08:44 Condition: stable 08:44 Discharge instructions given to patient, Instructed on discharge instructions, follow up and referral plans. medication usage, Demonstrated understanding of instructions, follow-up care, medications, Prescriptions given X 3, 08:45 Patient left the ED. hb Signatures: Lokesh Levine MD MD rn Baxter, Heather, RN RN Kelley Robbins [id number]
[2024-07-16 08:50] VITALS: BP 114/76; TEMP 98.9; O2SAT 99
== END 2024-07-16 08:45 | disposition home or self-care (01) ==
LOC: ER 08:14
DX: R05.9 Cough, unspecified (principal); R07.0 Pain in throat
CPT/HCPCS: 99283

== ENCOUNTER 2024-10-08 09:54 | Emergency (ER) | payer OTHER, SELFPAY ==
--- OUTSIDE RECORDS SUMMARY | 2024-10-08 10:13 | XMS REPORT | Continuity of Care Document ---
Author Name Unknown Address [address] [facility] [address] [place] [address] [facility] [place] Address [address] [facility] [address] [place] [address] Care Team Providers Care Aluminum Siding Installer Name Role Phone Clint Nolan Primary Care Physician [phone] ED [facility] B Attending Clinician Unavaila DALLAS Mensah Attending Clinician Unavailable ANTHONY JUNG Attending Clinician Unavailable MD DENAE Attending Clinician Unavailab BALDOMERO Blakely Attending Clinician Unavailable RADHA BALDERAS Attending Clinician Unavailab MATEO John Attending Clinician Unavailable [id number] Attending Clinician Unavailable VICKEY CHAIDEZ Attending Clinician Unavailable CECILIA GARCIA Attending Clinician Unavaila ble LAB47 Attending Clinician Unavailable BRAYDEN HUERTA Attending Clinician Unavailable Nurse, [facility] Attending Clinician Un available Unknown, Attending Attending Clinician UnavailRae Sherman MD Attending Clinician [phone] PALOMO WOODY Attending Clinician Unavailab rigoberto Doctor Unassigned, [place] Attending Clinician U navailable Lab, Adc Fam Pob I Attending Clinician UnavailMargaret Crow Attending Clinician [phone] MARGARET UMANZOR Attending Clinician Unavailable Payers Payer Name Policy Type Policy Number Effective Date Expirati on Date Source SILVER 5 [facility] 94 9 [id number] 2024 00:00:00 Problems Condition Name Condition Details Condition Category Status Onset Date Resolution Date Last Treatment Date Treating Clinician Comments Source Abnormal CXR Abnormal CXR Disease Active 6- 00:00: 00 Odessa Chaoa l BMI less than 19,adult BMI less than 19,adult Disease Active 2- 00:00: 00 Odessa Chaoa l Allergies, Adverse Reactions, Alerts Allergy Name Allergy Type Status Severity Reaction(s) Onset Date Inactive Date Treating Clinician Comments Source NO KNOWN ALLERGIE S Drug Class Active [facility] Social History Social Habit Start Date Stop Date Quantity Comments Source Sexual orientation Eusebio hamilton Chava - External History of Occupation Odessa Larsen - External History of tobacco use Cigarette Smoker Odessa barrientos - External Alcoholic beverage intake 2024-08-01 00:00:00 2024-08-01 00:00:00 Lifetime non-drinker (finding) Odessa Larsen - External Education 2023-10-27 00:00:00 2023-10-27 00:00:00 17 Odessa Larsen - External Cigarettes smoked current (pack per [...] (event) 2022-05-08 00:00:00 2022-05-18 10:21:00 Not sure [facility] Sex 2022-02-27 16:08:02 2022-02-27 16:08:02 Male (finding) Odessa Larsen - External Sex assigned at 1990 00:00:00 1990 00:00:00 Odessa Larsen - External Smoking Status Start Date Stop Date Source Tobacco smoking consumption unknown [facility] Smokes tobacco daily 2023-10-27 00:00:00 Odessa Contreras Never smoked tobacco [facility] Medications Ordered Medication Name Filled Medication Name Start Date Stop Date Current Medication? Ordering Clinician Indication Dosage Frequency Signature (SIG) Comments Components Source Cyproheptad ine HCl 4 MG oral Tablet 08-01 00:00: 00 Yes [id number] 4mg Q.[id number] 3D Take 1 tablet (4 mg total) by mouth 3 times daily as needed. Odessa corley Albuterol HFA 108 (90 Base) MCG/ACT IN AERS 07-28 00:00: 00 Yes [id number] 2{puff} Q.25D Inhale 2 puffs into the lungs every 6 hours as needed for wheezing or shortness of breath. Odessa corley Albuterol (PROVENTIL) (2.5 MG/3ML) 0.083% inhalation Inhalant Solution 07-27 00:00: 00 Yes INHALE ONE (1) VIAL VIA NEBULIZER EVERY EIGHT HOURS NEEDED. Odessa corley Cyproheptad ine HCl 4 MG oral Tablet 07-01 00:00: 00 08-01 00:00 :00 No [id number] 4mg Q.[id number] 3D Take 1 tablet (4 mg total) by mouth 3 times daily as needed. Odessa corley Iron Combination s (IRON COMPLEX OR) 06-28 08:13: 28 Yes 250mg QD Take 250 mg by mouth daily. Odessa corley Testosteron e Cypionate (DEPO-TESTO STERONE) 200 mg/mL - Every 14 Days 05-31 05:00: 00 Yes [id number] 200mg 200 mg, intramuscu lar, EVERY 14 DAYS, First dose on Thu05/31/24 at 0000, Until Discontinu ed Odessa corley Multiple Vitamin (MULTI VITAMIN DAILY OR) 05-30 10:19: 33 Yes Take by mouth. Odessa corley Multiple Vitamin (MULTI VITAMIN DAILY OR) 05-27 11:16: 15 Yes Take by mouth. Odessa corley Ibuprofen (MOTRIN) 600 MG oral Tablet - 00:00: 00 Yes TAKE ONE (1) TABLET(S) BY MOUTH EVERY SIX HOURS NEEDED FOR PAIN. TAKE WITH FOOD. Odessa corley Methylpredn isolone Acetate (Depo-Medro l) 40 mg/ml - Physician Administere d (J1030) 05-16 10:42: 54 No [id number] 9104 80mg 80 mg, Physician Administer ed, ONCE, 1 dose, On Thu05/16/24 at 1015 Odessa corley Multiple Vitamin (MULTI VITAMIN DAILY OR) 05-16 09:48: 53 Yes Take by mouth. Odessa corley Multiple Vitamin (MULTI VITAMIN DAILY OR) 05-10 14:31: 13 Yes Take by mouth. Odessa corley Varenicline Tartrate 1 MG oral Tablet 3- 00:00: 00 Yes [id number] 1mg Q.5D Take 1 tablet (1 mg total) by mouth 2 times daily. Odessa corley Multiple Vitamin (MULTI VITAMIN DAILY OR) 2-25 16:20: 32 Yes Take by mouth. Odessa corley Multiple Vitamin (MULTI VITAMIN DAILY OR) 2-10 16:36: 11 Yes Take by mouth. Odessa corley Varenicline Tartrate, Starter, 0.5 MG X 11 & 1 MG X 42 oral Tablet Therapy Pack 2-10 00:00: 00 Yes [id number] Use as directed on package instructio ns, try to quit smoking after 1 week.. Odessa corley Methylpredn isolone Acetate (Depo-Medro l) 40 mg/ml - Physician Administere d (J1030) 2023-03 0- 17:02: 32 No [id number] 9104 80mg 80 mg, Physician Administer ed, ONCE, 1 dose, On Thu12/14/23 at 1600 Odessa corley Celecoxib (CeleBREX) 200 MG oral Capsule 8 00:00: 00 04-11 00:00 :00 No [id number] 200mg Q.5D Take 1 capsule (200 mg total) by mouth 2 times daily as needed for pain (pain). Odessa Seybold - Externa l Vital Signs Vital Name Observation Time Observation Value Comments S jt Systolic blood pressure 2024-08-01 21:08:00 108 mm[Hg] Odessa Seybold - External Diastolic blood pressure 2024-08-01 21:08:00 64 mm[Hg] Odessa Seybold - External Heart rate 2024-08-01 21:08:00 92 /min Odessa Seybold - External Body temperature 2024-08-01 21:08:00 36.72 Lucero Odessa Seybold - External Respiratory rate 2024-08-01 21:08:00 20 /min Odessa Seybold - External Body height 2024-08-01 21:08:00 180.3 cm Odessa Seybold - External Body weight 2024-08-01 21:08:00 58.514 kg Odessa Seybold - External BMI 2024-08-01 21:08:00 17.99 kg/m2 Odessa Seybold - External Oxygen saturation in Arterial blood by Pulse oximetry 2024-08-01 21:08:00 97 /min Odessa Seybold - External Systolic blood pressure 2024-05-30 15:18:00 101 mm[Hg] Odessa Seybold - External Diastolic blood pressure 2024-05-30 15:18:00 68 mm[Hg] Odessa Seybold - External Heart rate 2024-05-30 15:18:00 76 /min Odessa Seybold - External Body temperature 2024-05-30 15:18:00 36.78 Lucero Odessa Seybold - External Respiratory rate 2024-05-30 15:18:00 18 /min Odessa Seybold - External Body height 2024-05-30 15:18:00 180.3 cm Odessa Seybold - External Body weight 2024-05-30 15:18:00 55.339 kg Odessa Seybold - External BMI 2024-05-30 15:18:00 17.02 kg/m2 Odessa Seybold - External Oxygen saturation in Arterial blood by Pulse oximetry 2024-05-30 15:18:00 100 /min Odessa Seybold - External Body height 2024-05-18 18:55:00 180.3 cm Odessa Seybold - External Body weight 2024-05-18 18:55:00 55.792 kg Odessa Seybold - External BMI 2024-05-18 18:55:00 17.16 kg/m2 Odesas Seybold - External Body height 2024-05-16 14:47:00 [...] External BMI 2024-04-11 22:31:00 17.57 kg/m2 Odessa Pantojaold - External Oxygen saturation in Arterial blood by Pulse oximetry 2024-04-11 22:31:00 97 /min Odessa Pantojaold - External Body height 2023-12-14 20:42:00 180.3 cm Odessa Larsen - External Body weight 2023-12-14 20:42:00 56.246 kg Odessa Pantojaold - External BMI 2023-12-14 20:42:00 17.29 kg/m2 Odessa Seybold - External Systolic blood pressure 2023-10-27 14:52:00 125 mm[Hg] Odessa Seybold - External Diastolic blood pressure 2023-10-27 14:52:00 81 mm[Hg] Odessa Seybold - External Heart rate 2023-10-27 14:52:00 78 /min Odessa Rosarioybold - External Body temperature 2023-10-27 14:52:00 36.56 Lucero Odessa Rosarioybold - External Respiratory rate 2023-10-27 14:52:00 16 /min Odessa Pantojaold - External Body weight 2023-10-27 14:52:00 56.246 kg Odessa Larsen - External Oxygen saturation in Arterial blood by Pulse oximetry 2023-10-27 14:52:00 100 /min Odessa Pantojaold - External Systolic blood pressure 2022-05-18 15:46:00 118 mm[Hg] [facility] Diastolic blood pressure 2022-05-18 15:46:00 73 mm[Hg] [facility] Heart rate 2022-05-18 15:46:00 93 /min [facility] Body temperature 2022-05-18 15:46:00 36.89 Lucero [facility] Respiratory rate 2022-05-18 15:46:00 16 /min [facility] Body weight 2022-05-18 15:46:00 59.421 kg [facility] BMI 2022-05-18 15:46:00 18.27 kg/m2 [facility] Oxygen saturation in Arterial blood by Pulse oximetry 2022-05-18 15:46:00 99 /min [facility] Procedures Procedure Date / Time Performed Performing Clinician Source ASSIGNMENT OF BENEFITS 2022-05-18 15:24:23 Ceci r Unassigned, [place] [facility] PATIENT FINANCIAL RESPONSIBILITY - ALL FORMS Doctor Unassigned, [place] [facility] Encounters Start Date/Time End Date/Time Encounter Type Admission Type Attending [facility] Care Department Encounter ID Source 2024-10-10 08:00:00 2024-10-10 08:00:00 Outpatient KEV MILAGROS MONTAÑO [id number] [facility] 2024-09-26 15:45:00 2024-09-26 15:45:00 Outpatient DALLAS MCKEE [id number] [facility] 2024-09-26 11:30:00 2024-09-26 11:30:00 Outpatient ODESSA MONTAÑO [id number] [facility] 2024-09-26 08:00:00 2024-09-26 08:00:00 Outpatient KEV MILAGROS MONTAÑO [id number] [facility] 2024-09-20 00:00:00 2024-09-20 00:00:00 Outpatient DALLAS MCKEE [id number] [facility] 2024-09-12 08:30:00 2024-09-12 08:30:00 Outpatient KEV MILAGROS MONTAÑO [id number] [facility] 2024-09-09 16:00:00 2024-09-09 16:00:00 Outpatient ODESSA MONTAÑO [id number] [facility] 2024-09-09 11:30:00 2024-09-09 11:30:00 Outpatient ODESSA MONTAÑO [id number] [facility] 2024-09-09 10:45:00 2024-09-09 10:45:00 Outpatient ANTHONY JUNG [id number] [facility] 2024-09-08 00:00:00 2024-09-08 00:00:00 Outpatient MD ODESSA EDGAR [id number] [facility] 2024-08-29 16:15:00 2024-08-29 16:15:00 Outpatient DALLAS MCKEE [id number] [facility] 2024-08-29 16:00:00 2024-08-29 16:00:00 Outpatient KEV, MILAGROS MONTAÑO [id number] [facility] Rsoarioybiliana 2024-08-29 08:30:00 2024-08-29 08:30:00 Outpatient OLSONBALDOMERO ODESSA [id number] [facility] 2024-08-29 08:15:00 2024-08-29 08:15:00 Outpatient KEV, MILAGROS MONTAÑO [id number] [facility] 2024-08-15 08:15:00 2024-08-15 08:15:00 Outpatient KEV, MILAGROS BETANCOURTSEY [id number] [facility] 2024-08-02 00:00:00 2024-08-02 00:00:00 Outpatient PREZAS, DALLAS MONTAÑO ODESSA [id number] [facility] 2024-08-01 16:30:00 2024-08-01 16:30:00 Outpatient PREZAS, DALLAS MONTAÑO ODESSA [id number] [facility] 2024-08-01 08:15:00 2024-08-01 08:15:00 Outpatient KEV, MILAGROS MONTAÑO ODESSA [id number] [facility] 2024-08-01 00:00:00 2024-08-01 00:00:00 Outpatient ODESSA MONTAÑO [id number] [facility] 2024-08-01 00:00:00 2024-08-01 00:00:00 Outpatient ODESSA MONTAÑO [id number] [facility] Seybold 2024-07-28 00:00:00 2024-07-28 00:00:00 Outpatient PREZAS, DALLAS MONTAÑO ODESSA [id number] [facility] 2024-07-27 00:00:00 2024-07-27 00:00:00 Outpatient PREZAS, DALLAS ODESSA MONTAÑO [id number] [facility] 2024-07-27 00:00:00 2024-07-27 00:00:00 Outpatient PREZAS, DALLAS ODESSA MONTAÑO [id number] [facility] Sey[facility] 2024-07-18 08:00:00 2024-07-18 08:00:00 Outpatient KEV, MILAGROS MONTAÑO ODESSA [id number] [facility] 2024-07-15 00:00:00 2024-07-15 00:00:00 Outpatient WESLEYBALDOMERO ODESSA [id number] [facility] 2024-07-12 08:15:00 2024-07-12 08:15:00 Outpatient KEV, MILAGROS MONTAÑO ODESSA [id number] [facility] 2024-07-11 13:30:00 2024-07-11 13:30:00 Outpatient ANDREY RADHA ODESSA ODESSA [id number] [facility] 2024-07-01 00:00:00 2024-07-01 00:00:00 Outpatient BALDOMERO OLSON [id number] [facility] 2024-06-28 08:15:00 2024-06-28 08:15:00 Outpatient KEV, MILAGROS ODESSA ODESSA [id number] [facility] 2024-06-23 00:00:00 2024-06-23 00:00:00 Outpatient MD ODESSA EDGAR [id number] [facility] 2024-06-14 16:15:00 2024-06-14 16:15:00 Outpatient KEV, MILAGROS MONTAÑO ODESSA [id number] [facility] 2024-06-02 00:00:00 2024-06-02 00:00:00 Outpatient OLSONBALDOMERO LOMELI [id number] [facility] 2024-05-31 16:15:00 2024-05-31 16:15:00 Outpatient KEV, MILAGROS ODESSA MONTAÑO [id number] [facility] 2024-05-30 16:00:00 2024-05-30 16:00:00 Outpatient KEV, MILAGROS ODESSA MONTAÑO [id number] [facility] 2024-05-30 09:45:00 2024-05-30 09:45:00 Outpatient ANTHONY JUNG [id number] [facility] 2024-05-30 00:00:00 2024-05-30 00:00:00 Outpatient OLSONBALDOMERO LOMELISEY [id number] [facility] 2024-05-30 00:00:00 2024-05-30 00:00:00 Outpatient OLSONBALDOMERO LOMELI ODESSA MONTAÑO [id number] [facility] 2024-05-27 11:20:00 2024-05-27 11:20:00 Outpatient DANIALMATEO ODESSA MONTAÑO [id number] [facility] 2024-05-27 08:10:00 2024-05-27 08:10:00 Outpatient [id number] ODESSA MONTAÑO [id number] [facility] 2024-05-27 00:00:00 2024-05-27 00:00:00 Outpatient OLSON, BALDOMERO MONTAÑO [id number] [facility] 2024-05-27 00:00:00 2024-05-27 00:00:00 Outpatient ODESSA MONTAÑO [id number] [facility] 2024-05-18 14:00:00 2024-05-18 14:00:00 Outpatient MAQBOMAYRA VICKEY ODESSA MONTAÑO [id number] [facility] 2024-05-18 00:00:00 2024-05-18 00:00:00 Outpatient MD ODESSA EDGAR [id number] [facility] 2024-05-16 10:00:00 2024-05-16 10:00:00 Outpatient JOSECECILIA [id number] [facility] 2024-05-16 09:05:00 2024-05-16 09:05:00 Outpatient LAB47 ODESSA MONTAÑO [id number] [facility] 2024-05-13 15:00:00 2024-05-13 15:00:00 Outpatient ANTHONY JUNG [id number] [facility] 2024-05-10 00:00:00 2024-05-10 00:00:00 Outpatient BALDOMERO OLSON [id number] [facility] 2024-05-10 00:00:00 2024-05-10 00:00:00 Outpatient BALDOMERO OLSON [id number] [facility] 2024-05-02 16:00:00 2024-05-02 16:00:00 Outpatient ZHUO, ANTHONY ODESSA MONTAÑO [id number] [facility] 2024-04-29 08:05:00 2024-04-29 08:05:00 Outpatient LUNA ODESSA MONTAÑO [id number] [facility] 2024-04-28 00:00:00 2024-04-28 00:00:00 Outpatient OLSON, BALDOMERO ODESSA MONTAÑO [id number] [facility] 2024-04-28 00:00:00 2024-04-28 00:00:00 Outpatient OLSON, BALDOMERO ODESSA MONTAÑO [id number] [facility] 2024-04-28 00:00:00 2024-04-28 00:00:00 Outpatient OLSON, BALDOMERO ODESSA MONTAÑO [id number] [facility] 2024-04-28 00:00:00 2024-04-28 00:00:00 Outpatient OLSON, BALDOMERO ODESSA MONTAÑO [id number] [facility] 2024-04-27 00:00:00 2024-04-27 00:00:00 Outpatient OLSON, BALDOMERO ODESSA MONTAÑO [id number] [facility] 2024-04-27 00:00:00 2024-04-27 00:00:00 Outpatient OLSON, BALDOMERO ODESSA MONTAÑO [id number] [facility] 2024-04-27 00:00:00 2024-04-27 00:00:00 Outpatient OLSON, BALDOMERO ODESSA MONTAÑO [id number] [facility] 2024-04-27 00:00:00 2024-04-27 00:00:00 Outpatient BHAGIA, BRAYDEN MONTAÑO [id number] [facility] 2024-04-26 16:30:00 2024-04-26 16:30:00 Outpatient OLSON, BALDOMERO MONTAÑO [id number] [facility] 2024-04-25 16:00:00 2024-04-25 16:00:00 Outpatient ZHUO, ANTHONY ODESSA MONTAÑO [id number] [facility] 2024-04-18 16:25:00 2024-04-18 16:25:00 Outpatient [id number] ODESSA MONTAÑO [id number] [facility] 2024-04-13 00:00:00 2024-04-13 00:00:00 Outpatient BALDOMERO OLSON [id number] [facility] 2024-04-11 17:15:00 2024-04-11 17:15:00 Outpatient [id number] ODESSA MONTAÑO [id number] [facility] 2024-04-11 16:30:00 2024-04-11 16:30:00 Outpatient BALDOMERO OLSON ODESSA [id number] [facility] 2023-12-15 10:30:00 2023-12-15 10:30:00 Outpatient DALLAS MCKEE ODESSA [id number] [facility] 2023-12-14 15:30:00 2023-12-14 15:30:00 Outpatient CECILIA GARCIA ODESSA [id number] [facility] 2023-12-09 15:45:00 2023-12-09 15:45:00 Outpatient ODESSA MONTAÑO [id number] [facility] 2023-11-23 16:10:00 2023-11-23 16:10:00 Outpatient ODESSA ODESSA [id number] [facility] 2023-11-23 14:20:00 2023-11-23 14:20:00 Outpatient CECILIA GARCIA ODESSA [id number] [facility] 2023-10-27 10:00:00 2023-10-27 10:00:00 Outpatient DALLAS MCKEE ODESSA [id number] [facility] 2022-05-18 10:40:00 2022-05-18 11:00:00 Nurse Visit Nurse, [facility] Unknown, Attending Rae Crystal [facility] [id number] [facility] 2022-05-18 10:40:00 2022-05-18 10:40:00 Outpatient RICCARDO SMILEYLY [facility] [id number] [facility] 2022-05-18 00:00:00 2022-05-18 00:00:00 Orders Only Doctor Unassigned, [place] [facility] [id number] [facility] 2020-01-28 15:45:02 2020-01-28 16:05:02 Laboratory Only Lab, Ad[facility] [id number] [facility] 2020-01-28 15:40:00 2020-01-28 15:40:00 Outpatient R NOÉ [facility] [id number] [facility] Orders Only Doctor Unassigned, [place] [facility] [id number] [facility] Notes Date/Time Note Provider Source 2024-08-01 16:22:11 Testosteron Order reviewed. Patient identified. Medication and dose confirmed with the patient. Injection given at site directed by the patient. [facility] 2024-08-01 16:12:08 Patient is here for testosterone injection and to go over xray [facility] 2024-05-30 10:19:36 Chief Complaint Patient presents with Hormone Problem Georgiana Beltre MA [facility] 2024-05-16 09:48:54 Chief Complaint Patient presents with Shoulder Pain Follow up left shoulder pain, requesting injection PL5/10 NIKKO Estrada [facility] 2024-05-13 15:13:53 Samara Campbell is here today for a Vasectomy, patient identified by name and . Patient acknowledges purpose of procedure and associated risks. electronic consent has been obtained: Yes Vitals signs have been taken and documented. No Known Allergies Patient scrotum shaved prior to arriving today. Patient is instructed to remain in supine position until discharged by nurse after the procedure. T Lyssa Wolf PORTRAIT CONSULTANT [facility] 2024-05-02 15:49:51 Chief Complaint Patient presents with Consultation For Vasectomy T Alexsander [facility] 2024-04-26 16:20:33 Chief Complaint Patient presents with Follow-up Concerned about weight loss. All labs where fine Lesly Ralph LVN [facility] 2024-04-11 16:36:12 Chief Complaint Patient presents with Physical Fasting for labs Lesly Ralph LVN [facility] 2023-12-14 15:43:32 Chief Complaint Patient presents with Follow-Up Visit Patient is here for left shoulder no changes or no recent injuries noni 11/23/23 patient requesting injection and MRI results. DENIS Motta [facility] 2023-11-23 14:21:10 Chief Complaint Patient presents with Shoulder Pain Left shoulder pain 2 months after fall roller skating [facility]
--- NOTE | 2024-10-08 11:36 | RAD REPORT ---
EXAMINATION: XR Foot Right 2 View CLINICAL INDICATION: Male, 33 years old. [facility] MAIN PAIN Bed Name: 3 TECHNIQUE: 3 view radiographs of the right foot were obtained. COMPARISON: No prior exam. FINDINGS: No evidence of fracture or dislocation. Normal alignment. No evidence of arthropathy or oth er focal bone lesion. Soft tissues are unremarkable. No soft tissue swelling. No significant degenerative changes. IMPRESSION: No acute or significant abnormalities.
--- NOTE | 2024-10-08 12:54 | ER ---
Nurse's Notes [facility] Name: Job Campbell Jr Age: 33 yrs Sex: Male : 1990 Arrival Date: 10/08/2024 Time: 09:54 Bed 9 Private MD: Diagnosis: Other sprain of right foot Presentation: 10/08 10:20 Chief complaint: Patient states: Right foot pain since yesterday after playing at [employer]. Coronavirus screen: At this time, the client does not indicate any symptoms associated with coronavirus-19. Ebola Screen: No symptoms or risks identified at this time. Initial Sepsis Screen: Does the patient meet any 2 criteria? No. Patient's initial sepsis screen is negative. Does the patient have a suspected source of infection? No. Patient's initial sepsis screen is negative. Risk Assessment: Do you want to hurt yourself or someone else? Patient reports no desire to harm self or others. Onset of symptoms was October 07, 2024. 10:20 Method Of Arrival: Wheelchair [facility] 10:20 Acuity: SUSANNA 4 jl7 Triage Assessment: 10:22 General: Appears in no apparent distress. uncomfortable, Behavior is calm, cooperative, jl7 appropriate for age. Pain: Complains of pain in lateral side of right foot Pain currently is 9 out of 10 on a pain scale. Musculoskeletal: Swelling absent. Injury Description: pain right foot. Historical: - Allergies: 10:22 No Known Allergies; jl7 - Home Meds: 10:22 None [Active]; jl7 - PMHx: 10:22 None; jl7 - PSHx: 10:22 Vasectomy; jl7 - Immunization history:: Adult Immunizations unknown. - Infectious Disease History:: Denies. - Social history:: Smoking status: Patient/guardian denies using tobacco, Stopped _ months ago 4. Screenin:07 [facility] ED Fall Risk Assessment (Adult) History of falling in the last 3 months, [facility] including since admission Yes- single mechanical fall (1 pt) Confusion or Disorientation No (0 pts) Intoxicated or Sedated No (0 pts) Impaired Gait No (0 pts) Mobility Assist Device Used No (0 pt) Altered Elimination No (0 pt) Score/Fall Risk Level 0 - 2 = Low Risk Oriented to surroundings, Maintained a safe environment. Abuse screen: Denies threats or abuse. Denies injuries from another. Nutritional screening: No deficits noted. Tuberculosis screening: No symptoms or risk factors identified. Vital Signs: 10:20 BP 107 / 58; Pulse 76; Resp 17; Temp 97.7; Pulse Ox 98% ; Weight 63.5 kg; Height 5 ft. jl7 11 in. ; Pain 9/10; 13:07 BP 120 / 78; Pulse 80; Resp 17; Pulse Ox 10% ; jl7 10:20 Body Mass Index 19.53 (63.50 kg, 180.34 cm) jl7 10:20 Pain Scale: Adult jl7 ED Course: 09:58 Patient arrived in ED. gl 09:59 Joshua Odom FNP-C is [facility]. dr5 09:59 Tennille Fiore is Attending Physician. dr5 10:21 Triage completed. jl7 10:22 Arm band placed on right wrist. jl7 11:16 XRAY Foot RIGHT 2 View In Process Unspecified. EDMS 13:07 Ambrocio Horvath, RN is Primary Nurse. jl7 13:07 Patient has correct armband on for positive identification. Provided Education on: jl7 discharge. 13:07 No provider procedures requiring assistance completed. Patient did not have IV access jl7 during this emergency room visit. Henry wrap to right foot. Administered Medications: No medications were administered Medication: 13:07 VIS not applicable for this client. jl7 Outcome: 12:54 Discharge ordered by MD. dr5 13:07 Discharged to home ambulatory, jl7 13:07 Condition: stable 13:07 Discharge instructions given to patient, family, Instructed on discharge instructions, follow up and referral plans. medication usage, Demonstrated understanding of instructions, follow-up care, medications, Prescriptions given X 2, 13:09 Patient left the ED. jl7 Signatures: Dispatcher [employer] EDMS Ambrocio Horvath RN RN jl7 Joshua Odom FNP-C SIDE DOOR MAN-Cdr5 Maira Garcia, Reg Reg gl
--- NOTE | 2024-10-08 12:54 | EDPHYS ---
Physician Documentation [facility] Name: Job Campbell Jr Age: 33 yrs Sex: Male : 1990 Arrival Date: 10/08/2024 Time: 09:54 Bed 9 Private MD: ED Physician Tennille Fiore HPI: 10/08 16:27 This 33 yrs old Male presents to ER via Wheelchair with complaints of Foot dr5 Injury. 16:27 The patient presents with pain, swelling, tenderness. Onset: The symptoms/episode dr5 began/occurred acutely. Patient is a 33-year-old male with no past medical history coming in with right foot injury and pain that occurred after hitting the ball at [email or web address]. Patient reports he hit the lateral side of the right foot. Patient denies numbness tingling. Patient also denies difficulty ambulating.. Historical: - Allergies: 10:22 No Known Allergies; jl7 - Home Meds: 10:22 None [Active]; jl7 - PMHx: 10:22 None; jl7 - PSHx: 10:22 Vasectomy; jl7 - Immunization history:: Adult Immunizations unknown. - Infectious Disease History:: Denies. - Social history:: Smoking status: Patient/guardian denies using tobacco, Stopped _ months ago 4. ROS: 16:27 Constitutional: as per hpi dr5 Exam: 16:27 Constitutional: This is a well developed, well nourished patient who is awake, alert, dr5 and in no acute distress. Head/Face: Normocephalic, atraumatic. Eyes: Pupils equal round and reactive to light, extra-ocular motions intact. Lids and lashes normal. Conjunctiva and sclera are non-icteric and not injected. Cornea within normal limits. Periorbital areas with no swelling, redness, or edema. ENT: Nares patent. No nasal discharge, no septal abnormalities noted. Tympanic membranes are normal and external auditory canals are clear. Oropharynx with no redness, swelling, or masses, exudates, or evidence of obstruction, uvula midline. Mucous membranes moist. Chest/axilla: Normal chest wall appearance and motion. Nontender with no deformity. No lesions are appreciated. Cardiovascular: Regular rate and rhythm with a normal S1 and S2. Normal PMI, no JVD. No pulse deficits. Respiratory: Lungs have equal breath sounds bilaterally, clear to auscultation. No rales, rhonchi or wheezes noted. No increased work of breathing, no retractions or nasal flaring. Abdomen/GI: Soft, non-tender, non-distended Back: No spinal tenderness. No costovertebral tenderness. Full range of motion. Skin: Warm, dry with normal turgor. Normal color with no rashes, no lesions, and no evidence of cellulitis. MS/ Extremity: Pulses equal, no cyanosis. Neurovascular intact. Full, normal range of motion. Neuro: Awake and alert, GCS 15, oriented to person, place, time, and situation. Cranial nerves II-XII grossly intact. Motor strength 5/5 in all extremities. Sensory grossly intact. Cerebellar exam normal. Normal gait. Vital Signs: 10:20 BP 107 / 58; Pulse 76; Resp 17; Temp 97.7; Pulse Ox 98% ; Weight 63.5 kg; Height 5 ft. jl7 11 in. ; Pain 9/10; 13:07 BP 120 / 78; Pulse 80; Resp 17; Pulse Ox 10% ; jl7 10:20 Body Mass Index 19.53 (63.50 kg, 180.34 cm) jl7 10:20 Pain Scale: Adult jl7 Procedures: 16:27 Splinting: Splint applied to right foot using henry wrap, applied by nurse. Examined by usman me, post splint application: neurovascular intact, 2+ distal pulses palpable, brisk capillary refill noted, Patient tolerated well. MDM: 09:59 Medical Screening Exam initiated dr5 16:27 Differential diagnosis: open fracture, closed fracture, contusion, abrasion. Data dr5 reviewed: vital signs, nurses notes, radiologic studies, plain films. Consideration of Admission/Observation Escalation of care including admission/observation considered. Escalation considered patient found to have open fracture.. I considered the following discharge prescriptions or medication management in the emergency department I discussed and recommended Over The Counter medications. Care significantly affected by the following Social Determinants of Health: Poor access to healthcare and/or lack of insurance, Poor access to transportation, Problems related to employment. Counseling: I had a detailed discussion with the patient and/or guardian regarding the historical points, exam findings, and any diagnostic results supporting the discharge/admit diagnosis, the presence of at least one elevated blood pressure reading (>120/80) during this emergency department visit, radiology results, the need for outpatient follow up, for definitive care, a family practitioner, a orthopedic surgeon, to return to the emergency department if symptoms worsen or persist or if there are any questions or concerns that arise at home. Special discussion: Based on the history and exam findings, there is no indication for further emergent testing or inpatient evaluation. I discussed with the patient/guardian the need to see the orthopedic surgeon for further evaluation of the symptoms. ED course: Henry wrap applied for comfort. Recommended RICE. No fracture noted on x-ray. Recommend patient follow-up with orthopedics and follow-up primary care doctor. All question answered. Strict ER precautions given.. 10/08 10:24 Order name: XRAY Foot RIGHT 2 View; Complete Time: 12:30 jl7 10/08 12:30 Order name: Henry Wrap; Complete Time: 13:07 dr5 Administered Medications: No medications were administered Disposition: 17:02 Co-signature as Attending Physician, Tennille Fiore I agree with the assessment ci and plan of care. I reviewed the patient's care provided by the Advanced Practice Provider and agree with the diagnosis and treatment plan. Disposition Summary: 10/08/24 12:54 Discharge Ordered Notes: Location: Home dr5 Condition: Stable dr5 Diagnosis - Other sprain of right foot dr5 Followup: dr5 - With: Emergency Department - When: As needed - Reason: Worsening of condition Followup: dr5 - With: Private Physician - When: 1 - 2 days - Reason: Recheck today's complaints, Continuance of care, Re-evaluation by your physician Discharge Instructions: - Discharge Summary Sheet dr5 - Foot Sprain dr5 - RICE Therapy for Routine Care of Injuries dr5 Forms: - Medication Reconciliation Form dr5 - Patient Portal Instructions dr5 - Leadership Thank You Letter dr5 Prescriptions: - Ibuprofen 800 mg Oral Tablet - take 1 tablet ORAL route every 12 hours As needed take with food; 20 tablet; dr5 Refills: 0, Product Selection Permitted - Tramadol 50 mg Oral Tablet - take 1 tablet ORAL route every 8 hours as needed; 12 tablet; Refills: 0, dr5 Product Selection Permitted Signatures: Dispatcher [employer] Ambrocio Smyth RN RN jl7 MagankroxanauTennille Dustin, FINE ARTS CHAIR-C FINE ARTS CHAIR-Cdr5
[2024-10-08 13:25] VITALS: TEMP 97.7
[2024-10-08 13:26] VITALS: BP 120/78; O2SAT 10
== END 2024-10-08 13:09 | disposition home or self-care (01) ==
LOC: ER 09:54
DX: S93.691A Other sprain of right foot, initial encounter (principal)
CPT/HCPCS: 99283